=== PATIENT | female | born 1955 | race Caucasian/White ===

== ENCOUNTER 2020-10-19 08:08 | Outpatient (REF) | payer BC, SELFPAY ==
[2020-10-22 01:27] LABS: HPV mRNA E6/E7 rflx Not Detected (Not Detected)
== END 2020-10-19 08:09 | disposition home or self-care (01) ==
LOC: HO.LAB 08:08
PROVIDERS: PCP Internal Medicine; Visit Provider Advanced Practice Midwife
DX: Z01.419 Encounter for gynecological examination (general) (routine) without abnormal findings (principal); Z11.51 Encounter for screening for human papillomavirus (HPV)
CPT/HCPCS: 87624; 88142

== ENCOUNTER 2021-01-11 08:05 | Outpatient (REF) | payer MEDICARE, SELFPAY ==
--- NOTE | ~2021-01-11 | US_ITS ---
EXAMINATION: US DIAGNOSTIC ULTRASOUND BREAST, LEFT CLINICAL INFORMATION: Left breast density upper outer aspect. COMPARISON: June 17, 2019 and studies dating back to April 08, 2009. TECHNIQUE: Ultrasound of the breast is performed with real-time de [place] scale imaging and color Doppler. FINDINGS: Targeted right breast ultrasound again shows a hypoechoic lesion which is well-circumscribed and hypoechoic with the appearance of a complex cyst with some distal sound enhancement and no distal sound shadowing and no internal vasculature. This is at the 9:00 position and measures approximately 4 x 3 x 3 mm in size. This has been stable or smaller for 2 years. At the 1:00 position within the left breast there is a 7 x 6 x 2 mm well-circumscribed hypoechoic lesion with some distal sound enhancement and no distal sound shadowing. The lesion is wider than it is tall and is avascular. Results are provided to the patient at time of visit by the technologist. US/US breast LT limited IMPRESSION: Stability of right breast lesion for 2 years. New circumscribed hypoechoic lesion within the upper outer aspect of the left breast for which 6 month follow-up left breast mammogram and ultrasound is recommended. ASSESSMENT: BI-RADS 3: Probably Benign RECOMMENDATION: Diagnostic mammography in 6 months. Targeted left breast ultrasound.
--- NOTE | ~2021-01-11 | US_ITS ---
EXAMINATION: US DIAGNOSTIC ULTRASOUND BREAST, RIGHT CLINICAL INFORMATION: Follow-up hypoechoic lesion 9 o'clock position. COMPARISON: June 17, 2019 and studies dating back to April 08, 2009. TECHNIQUE: Ultrasound of the breast is performed with real-time de [place] scale imaging and color Doppler. FINDINGS: Targeted right breast ultrasound again shows a hypoechoic lesion which is well-circumscribed and hypoechoic with the appearance of a complex cyst with some distal sound enhancement and no distal sound shadowing and no internal vasculature. This is at the 9:00 position and measures approximately 4 x 3 x 3 mm in size. This has been stable or smaller for 2 years. At the 1:00 position within the left breast there is a 7 x 6 x 2 mm well-circumscribed hypoechoic lesion with some distal sound enhancement and no distal sound shadowing. The lesion is wider than it is tall and is avascular. Results are provided to the patient at time of visit by the technologist. US/US breast RT limited IMPRESSION: Stability of right breast lesion for 2 years. New circumscribed hypoechoic lesion within the upper outer aspect of the left breast for which 6 month follow-up left breast mammogram and ultrasound is recommended. ASSESSMENT: BI-RADS 3: Probably Benign RECOMMENDATION: Diagnostic mammography in 6 months. Targeted left breast ultrasound. .
--- NOTE | ~2021-01-11 | MM_ITS ---
EXAMINATION: MM DIAGNOSTIC DIGITAL BREAST TOMOSYNTHESIS, BILATERAL US TARGETED BREAST, BILATERAL CLINICAL INFORMATION: Right breast one-year follow up for cyst. Left yearly screening. The lifetime risk of breast cancer based on the Tyrer-Cuzick Model is 6.2%. COMPARISON: Mammography: 06/17/2019 and studies going back to 04/08/2009. TECHNIQUE: Digital breast tomosynthesis is performed in both the craniocaudal and mediolateral oblique views along with computer-aided detection (CAD). Synthesized 2-D images are generated from the tomosynthesis. FINDINGS: The breasts are heterogeneously dense, which may obscure small masses (ACR BI-RADS breast composition Category c). RIGHT BREAST: There is a stable parenchymal pattern present. No new abnormal dominant mass or suspicious grouping of microcalcifications identified. LEFT BREAST: Within the left breast, there is noted to be a new 6 mm density about the upper outer aspect of the left breast approximately 6 cm from the nipple. No region of architectural distortion or suspicious grouping of microcalcifications identified. TARGETED ULTRASOUND: Targeted right breast ultrasound again shows a hypoechoic lesion which is well circumscribed and hypoechoic with the appearance of a complex cyst with some distal sound enhancement and no distal sound shadowing and no internal vasculature. This is at the 9 o'clock position and measures approximately 4 x 3 x 3 mm in size. This has been stable or smaller for 2 years. At the 1 o'clock position within the left breast, there is a 7 x 6 x 2 mm well circumscribed hypoechoic lesion with some distal sound enhancement and no distal sound shadowing. The lesion is wider than it is tall and is avascular. Results are provided to the patient at time of visit by the technologist. MM/MM tomosynthesis diagnostic BI IMPRESSION: 1. Stability of right breast lesion for 2 years. 2. New circumscribed hypoechoic lesion within the upper outer aspect of the left breast for which 6 month follow up left breast mammogram and ultrasound is recommended. ASSESSMENT: BI-RADS 3: Probably Benign. RECOMMENDATION: 1. Diagnostic mammography in 6 months. 2. Targeted left breast ultrasound. This patient's information was entered into a reminder system with a target due date for their next mammogram.
== END 2021-01-11 08:06 | disposition home or self-care (01) ==
LOC: HO.MAMMO 08:05
PROVIDERS: PCP Internal Medicine; Visit Provider Internal Medicine
DX: N60.01 Solitary cyst of right breast (principal); N63.21 Unspecified lump in the left breast, upper outer quadrant
CPT/HCPCS: 76642; 77062; 77066

== ENCOUNTER 2021-01-26 07:02 | Outpatient (REF) | payer MEDICARE, SELFPAY ==
[2021-01-26 07:19] LABS: MANUAL DIFF FLAG NO
[2021-01-26 07:36] LABS: Basophils Percent Auto 0.3 % (0-2); Eosinophils Absolute Auto 0.2 X10*3/uL (0.0-0.4); Eosinophils Percent Auto 2.9 % (0-4); Hematocrit 42.9 % (37-47); Hemoglobin 14.1 g/dl (12.0-16.0); Imm Gran Abs Auto 0.01 X10*3/uL (0.00-0.03); Imm Gran Pct Auto 0.2 % (0.0-0.4); Lymphocytes Absolute Auto 1.7 X10*3/uL (1.2-4.9); Lymphocytes Percent Auto 29.4 % (20-40); Mean Corpuscular HGB Conc 32.9 g/dl (31.0-35.0); Mean Corpuscular Hemoglobin 28.5 pg (27.0-33.0); Mean Corpuscular Volume 86.7 fL (80-98); Mean Platelet Volume 10.9 fL (9.4-12.3); Monocytes Absolute Auto 0.4 X10*3/uL (0.1-1.2); Monocytes Percent Auto 7.6 % (2-11); Neutrophils Absolute Auto 3.5 X10*3/uL (2.0-8.3); Neutrophils Percent Auto 59.6 % (45-73); Platelet Count 210 X10*3/uL (160-400); Red Blood Count 4.95 X10*6/uL (4.20-5.50); Red Cell Distribution Width 13.4 % (11.0-16.0); White Blood Count 5.8 X10*3/uL (4.8-10.8)
[2021-01-26 07:54] LABS: Alanine Aminotransferase 24 U/L (0-31); Albumin Level 4.3 g/dL (3.5-5.0); Alkaline Phosphatase 103 U/L (39-117); Anion Gap 9 (12-20); Aspartate Amino Transferase 20 U/L (5-31); Bilirubin Total 0.6 mg/dL (0.0-1.0); Blood Urea Nitrogen 15 mg/dL (9-16); Calcium 10.8 mg/dL (8.4-10.2); Carbon Dioxide 31 mmol/L (22-29); Chloride 107 mmol/L (96-108); Cholesterol 251 mg/dL; Estimated Glomerular Filt Rate > 60; Glucose Random 97 mg/dL (60-115); HDL Cholesterol 75 mg/dL; LDL Cholesterol Calculated 163 mg/dl; Potassium 4.3 mmol/L (3.3-5.1); Sodium 143 mmol/L (135-145); Triglycerides 69 mg/dL
[2021-01-26 08:19] LABS: Free T4 (Free Thyroxine) 0.88 ng/dL (0.71-1.85); Thyroid Stimulating Hormone 2.29 uIU/mL (0.32-4.0); Vitamin D 25-OH Total 21.2 ng/mL (>30)
[2021-01-26 08:26] LABS: Folate 9.4 ng/mL (> or = 4.0); Vitamin B12 266 pg/mL (200-900)
== END 2021-01-26 07:03 | disposition home or self-care (01) ==
LOC: HO.LAB 07:02
PROVIDERS: PCP Internal Medicine; Visit Provider Internal Medicine
DX: M85.80 Other specified disorders of bone density and structure, unspecified site (principal); E78.00 Pure hypercholesterolemia, unspecified
CPT/HCPCS: 36415; 80053; 80061; 82306; 82607; 82746; 84439; 84443; 85025

== ENCOUNTER 2021-03-10 08:03 | Outpatient (REF) | payer MEDICARE, SELFPAY ==
--- NOTE | ~2021-03-10 | MM_ITS ---
EXAMINATION: BONE DENSITOMETRY CLINICAL INDICATION: Osteopenia. COMPARISON: None (current study represents initial baseline exam). TECHNIQUE: Using a [employer] DXA System (software version: 13.1) manufactured by [employer], dual-energy x-ray absorptiometry was performed of the lumbar spine and left hip. The images are of good technical quality. Summary results are attached. FINDINGS: AP SPINE L1-L4: BMD 1.123 g/cm2, Z-score 1.1, T-score -0.5, normal. LEFT FEMUR, NECK: BMD 0.875 g/cm2, Z-score 0.3, T-score -1.2, osteopenia. LEFT FEMUR, TOTAL: BMD 0.928 g/cm2, Z-score 0.6, T-score -0.6, normal. IDENTIFIED RISK FACTORS: Menopause. HISTORY OF FRACTURE: None listed. MEDICATIONS: None listed. MM/XR DEXA axial skeleton IMPRESSION: 1. DIAGNOSIS: Osteopenia based on the lowest T-score value of -1.2 in the femoral neck applying World Health Organization criteria. 2. 10-YEAR FRACTURE RISK PREDICTION, FRAX: Major osteoporotic fracture (clinical spine, forearm, hip or shoulder) 8.1%. Hip fracture 0.7%. 3. Treatment Recommendations: NOF guidelines recommend consideration for treatment in postmenopausal women and men age 50 and older presenting with the following: -A hip or vertebral (clinical or morphometric) fracture. -T-score less than or equal to -2.5 at the femoral neck or spine after appropriate evaluation to exclude secondary causes. -Low bone mass at the hip or spine and a 10-year fracture probability by FRAX of greater than or equal to 3% for hip fracture or greater than or equal to 20% for major osteoporotic fracture based on the [place] adapted WHO algorithm. 4. Other Recommendations: All treatment decisions require clinical judgment and consideration of individual patient factors, including patient preferences, comorbidities, previous drug use, risk factors not captured in the FRAX model (e.g. frailty, falls, vitamin D deficiency, increased bone turnover, interval significant decline in bone density) and possible under or overestimation of fracture risk by FRAX. Additional medical evaluation for secondary cause of low bone mineral density may be appropriate. FUTURE SCAN RECOMMENDATION: People with diagnosed cases of osteoporosis or at high risk for fracture should have regular bone mineral density tests. For patients eligible for Medicare, routine testing is allowed once every 2 years. The testing frequency can be increased to one year for patients who have rapidly progressing disease, those who are receiving or discontinuing medical therapy to restore bone mass, or have additional risk factors.
== END 2021-03-10 08:04 | disposition home or self-care (01) ==
LOC: HO.MAMMO 08:03
PROVIDERS: Visit Provider Internal Medicine
DX: Z13.820 Encounter for screening for osteoporosis (principal); M85.80 Other specified disorders of bone density and structure, unspecified site; Z78.0 Asymptomatic menopausal state
CPT/HCPCS: 77080

== ENCOUNTER 2021-03-29 06:56 | Outpatient (REF) | payer MEDICARE, SELFPAY ==
[2021-03-30 15:56] LABS: Calcium (PTHI) 10.7 mg/dL (8.6-10.4); PTHI 134 pg/mL (14-64)
[2021-03-31 11:16] LABS: Calcium, Ionized 5.6 mg/dL (4.8-5.6)
== END 2021-03-29 06:57 | disposition home or self-care (01) ==
LOC: HO.LAB 06:56
PROVIDERS: PCP Internal Medicine; Visit Provider Internal Medicine
DX: E83.52 Hypercalcemia (principal)
CPT/HCPCS: 36415; 82330; 83970

== ENCOUNTER 2021-07-12 10:49 | Outpatient (REF) | payer MEDICARE, SELFPAY ==
--- NOTE | ~2021-07-12 | MM_ITS ---
EXAMINATION: MM DIAGNOSTIC DIGITAL BREAST TOMOSYNTHESIS, LEFT TARGETED LEFT BREAST ULTRASOUND CLINICAL INFORMATION: Left breast density 1 o'clock position. The lifetime risk of breast cancer based on the Tyrer-Cuzick Model is 7%. COMPARISON: Mammography: 01/11/2021 and studies dating back to 04/08/2009. TECHNIQUE: Digital breast tomosynthesis is performed in both the craniocaudal and mediolateral oblique views along with computer-aided detection (CAD). Synthesized 2D images are generated from the tomosynthesis. Spot compression view left breast in mediolateral oblique projection and full-field 90-degree mediolateral view. Targeted left breast ultrasound. FINDINGS: The breasts are heterogeneously dense, which may obscure small masses (ACR BI-RADS breast composition Category c). There is a central stability to the circumscribed density about the deep upper outer aspect of the left breast. There is question of a partially circumscribed density about the inferior aspect of the breast which by tomosynthesis views shows should be lateral; however, I do not visualize it on craniocaudal view. Spot compression view of this location does not demonstrate persistence of a circumscribed mass. Targeted ultrasound evaluation demonstrates stability of the 1 o'clock lesion measuring 5 x 5 x 2 mm in size which is well circumscribed without distal sound shadowing and is wider than it is tall without internal vascularity, approximately 2 cm from the nipple which may not correspond to the mammographic finding due to it being approximately 2 cm from nipple compared to the mammographic distance from the nipple. However, breast position changes with the patient supine on ultrasound. Essentially whole-breast scanning was then performed looking for the second questioned lesion with no abnormal cystic or solid mass identified and no region of abnormal distal sound shadowing identified. Recommend 6 month bilateral mammography with diagnostic study of the left breast as well as left breast ultrasound. Results are discussed with the patient at time of visit. MM/MM tomosynthesis diagnostic LT IMPRESSION: There are no significant changes from prior study. ASSESSMENT: BI-RADS 3: Probably Benign. RECOMMENDATION: Diagnostic mammography in 6 months. This patient's information was entered into a reminder system with a target due date for their next mammogram.
--- NOTE | ~2021-07-12 | US_ITS ---
EXAMINATION: US DIAGNOSTIC ULTRASOUND BREAST, LEFT CLINICAL INFORMATION: Density 1:00 position. COMPARISON: Ultrasound of January 12, 2020 and studies dating back to March 22, 2017. TECHNIQUE: Ultrasound of the breast is performed with real-time [place] scale imaging and color Doppler. FINDINGS: Targeted ultrasound evaluation demonstrates stability of the 1:00 lesion measuring 5 x 5 x 2 mm in size which is well-circumscribed without distal sound shadowing and is wider than it is tall without internal vascularity approximately 2 cm from the nipple which may not correspond to the mammographic finding due to its approximately 2 cm from nipple compared to the mammographic distance from the nipple. However breast position changes with the patient supine on ultrasound. Essentially all breast scanning was then performed looking for the second questioned lesion with no abnormal cystic or solid mass identified and no region of abnormal distal sound shadowing identified. Recommend 6 month bilateral mammography with diagnostic study of the left breast as well as left breast ultrasound. Results are discussed with the patient at time of visit. US/US breast LT limited IMPRESSION: There are no significant changes from prior study. ASSESSMENT: BI-RADS 3: Probably Benign RECOMMENDATION: Diagnostic mammography in 6 months.
== END 2021-07-12 10:50 | disposition home or self-care (01) ==
LOC: HO.MAMMO 10:49
PROVIDERS: PCP Internal Medicine; Visit Provider Internal Medicine
DX: R92.2 Inconclusive mammogram (principal)
CPT/HCPCS: 76642; 77061; 77065

== ENCOUNTER 2021-12-09 11:11 | Outpatient (REF) | payer MEDICARE, SELFPAY ==
[2021-12-09 11:44] LABS: Hematocrit 43.4 % (37.0-47.0); Hemoglobin 14.1 g/dl (12.0-16.0); Mean Corpuscular HGB Conc 32.5 g/dl (31.0-35.0); Mean Corpuscular Hemoglobin 27.9 pg (27.0-33.0); Mean Corpuscular Volume 85.9 fL (80.0-98.0); Mean Platelet Volume 10.6 fL (9.4-12.3); Platelet Count 213 X10*3/uL (160-400); Red Blood Count 5.05 X10*6/uL (4.20-5.50); Red Cell Distribution Width 13.3 % (11.0-16.0); White Blood Count 4.9 X10*3/uL (4.8-10.8)
[2021-12-09 12:12] LABS: Alanine Aminotransferase 31 U/L (0-31); Albumin Level 4.4 g/dL (3.5-5.0); Alkaline Phosphatase 116 U/L (39-117); Anion Gap 14 (12-20); Aspartate Amino Transferase 22 U/L (5-31); Bilirubin Direct 0.2 mg/dL (0.0-0.5); Bilirubin Total 0.5 mg/dL (0.0-1.0); Blood Urea Nitrogen 18 mg/dL (9-16); Calcium 10.8 mg/dL (8.4-10.2); Carbon Dioxide 29 mmol/L (22-29); Chloride 104 mmol/L (96-108); Estimated Glomerular Filt Rate > 60; Glucose Random 90 mg/dL (60-115); Sodium 142 mmol/L (135-145); Total Protein 7.2 g/dL (6.5-8.0)
[2021-12-09 12:31] LABS: Thyroid Stimulating Hormone 2.25 uIU/mL (0.32-4.0)
== END 2021-12-09 11:12 | disposition home or self-care (01) ==
LOC: HO.LAB 11:11
PROVIDERS: PCP Internal Medicine; Visit Provider Internal Medicine
DX: H26.9 Unspecified cataract (principal)
CPT/HCPCS: 36415; 80048; 80076; 84443; 85027

== ENCOUNTER 2022-01-20 13:11 | Outpatient (REF) | payer MEDICARE, SELFPAY ==
--- NOTE | ~2022-01-20 | MM_ITS ---
EXAMINATION: MM DIAGNOSTIC DIGITAL BREAST TOMOSYNTHESIS, BILATERAL US DIAGNOSTIC ULTRASOUND BREAST, LEFT CLINICAL INFORMATION: Due for yearly. Also follow-up probable benign nodular asymmetric density central upper outer left breast, initially noted on mammography 01/11/2021. TC score 7%. COMPARISON: Mammography: 07/12/2021, 01/11/2021 (diagnostic, BI-RADS 3), 06/17/2019, 06/09/2018; targeted left breast ultrasound 07/12/2021, 01/11/2021. TECHNIQUE: Digital breast tomosynthesis is performed in both the craniocaudal and mediolateral oblique views along with computer-aided detection (CAD). Synthesized 2D images are generated from the tomosynthesis. Ultrasound left breast is targeted to the area of imaging concern upper and outer quadrants. Grayscale imaging and color Doppler are performed without and with harmonics. FINDINGS: The breasts are heterogeneously dense, which may obscure small masses (ACR BI-RADS breast composition Category c). There are scattered parenchymal asymmetries similar to prior studies. No developing density or interval architectural abnormality. No abnormal calcifications. The axilla are unremarkable. The skin contours are smooth. The nodular asymmetric density central upper outer left breast for follow-up is less conspicuous, decreased in size. Targeted ultrasound demonstrates no cystic or solid mass. No architectural abnormality. Results are discussed with the patient at time of visit. Left breast will be reassessed again at next bilateral annual mammography in 12 months to conclude long-term surveillance. MM/MM tomosynthesis diagnostic BI IMPRESSION: Left: -Finding for follow-up is less conspicuous, decreased from prior exam. Right: -No mammographic evidence of malignancy. ASSESSMENT: BI-RADS 3: Probably Benign RECOMMENDATION: Diagnostic mammography at time of next annual exam, due in 12 months. This patient's information was entered into a reminder system with a target due date for their next mammogram.
== END 2022-01-20 13:12 | disposition home or self-care (01) ==
LOC: HO.MAMMO 13:11
PROVIDERS: PCP Internal Medicine; Visit Provider Internal Medicine
DX: N63.21 Unspecified lump in the left breast, upper outer quadrant (principal)
CPT/HCPCS: 76642; 77062; 77066

== ENCOUNTER 2022-06-08 08:07 | Outpatient (REF) | payer MEDICARE, SELFPAY ==
[2022-06-11 03:48] LABS: HPV mRNA E6/E7 rflx Not Detected (Not Detected)
== END 2022-06-08 08:08 | disposition home or self-care (01) ==
LOC: HO.LNP 08:07
PROVIDERS: PCP Internal Medicine; Visit Provider Advanced Practice Midwife
DX: Z01.419 Encounter for gynecological examination (general) (routine) without abnormal findings (principal); Z11.51 Encounter for screening for human papillomavirus (HPV); N81.10 Cystocele, unspecified
CPT/HCPCS: 87624; 88142; 99212

== ENCOUNTER 2023-01-26 12:44 | Outpatient (REF) | payer MEDICARE, SELFPAY | END 2023-01-26 12:45 | disposition home or self-care (01) | LOC: HO.MAMMO 12:44 | PROVIDERS: PCP Internal Medicine; Visit Provider Internal Medicine | DX: R92.2 Inconclusive mammogram (principal) | CPT/HCPCS: 77062; 77066 ==

== ENCOUNTER → 2023-01-26 13:00 | Outpatient (BNV) | payer MEDICARE, SELFPAY | PROVIDERS: PCP Internal Medicine; Visit Provider Radiology Diagnostic Radiology | DX: R92.333 Mammographic heterogeneous density, bilateral breasts (principal); R92.1 Mammographic calcification found on diagnostic imaging of breast | CPT/HCPCS: 77062; 77066 ==

== ENCOUNTER 2023-02-02 08:44 | Outpatient (AMB) | payer MEDICARE, SELFPAY ==
[2023-02-02 08:49] VITALS: BP 124/68; PULSE 63; O2SAT 98; BMI 23.2
--- NOTE | 2023-02-02 08:49 | AM.OFFVISMDC ---
Intake Vital Signs 02/02/23 08:49 Height 5 ft 6 in Weight 144 lb BMI 23.2 BP 124/68 Blood Pressure Location Lt brachial Position Sitting Pulse 63 Pulse Source Pulse Oximeter Pulse Oximetry (%) 98 Oxygen Delivery Method Room Air Intake Visit Reasons: SAWV [id number], Discuss/Bill ACP Allergies penicillin V Allergy (Unknown, Verified 02/02/23 08:50) hives Medication List - Last Reconciled 02/02/23 by Miranda Casillas MD acetaminophen (Tylenol Extra Strength) 500 mg PO Q6H PRN cholecalciferol (vitamin D3) 50 mcg PO DAILY 90 days cyanocobalamin (vitamin B-12) 1,000 mcg PO DAILY lidocaine 5% 1 appl topical DAILY PRN omega-3 fatty acids (Fish Oil Concentrate) 1,000 mg PO DAILY sumatriptan succinate 25 mg PO Q2-4H PRN HPI SAWV [id number], Discuss/Bill ACP HPI Details 68-year-old female with a history of hyperparathyroidism vitamin-D deficiency B12 deficiency hypercholesterolemia osteopenia migraine coming in for annual well visit last seen last year. Patient's Pap smear mammogram and Cologuard are up-to-date patient follows up in [facility] for seborrheic keratosis bone density February 2021 for osteopenia walks 10 miles a day [facility] Medical History (Updated 02/02/23 @ 09:31 by Miranda Casillas MD) Medicare annual wellness visit, subsequent Hypercalcemia Annual physical exam Colon cancer screening Abnormal Pap smear of cervix Surgical History History of cataract surgery Strabismus Family History (Updated 02/02/23 @ 09:36 by Miranda Casillas MD) Brother Polycythemia vera Father FH: prostate cancer Social History Housing: House Alcohol intake: never Patient Tobacco Use Status: Never used Tobacco e-Cigarette/Vaping Use: Never Used Second Hand Smoke Exposure: No service: No Current occupational status: retired Cognitive needs: No Hearing needs: No Vision needs: Yes (glasses) Questionnaire Medicare Wellness Checkup [age] 65-70 What gender do you identify with?: female During the past 4 weeks, how much have you been bothered by emotional problems such as feeling anxious, depressed, irritable, sad or downhearted, and blue?: not at all During the past 4 weeks, has your physical & emotional health limited your social activities with family, friends, neighbors, or groups?: not at all During the past 4 weeks, how much bodily pain have you generally had?: no pain During the past 4 weeks, was someone available to help you if you needed & wanted help?: yes, as much as I wanted During the past 4 weeks, what was the hardest physical activity you could do for at least 2 minutes?: moderate Can you get to places out of walking distance without help? (For eg., can you travel alone on buses, taxis or drive your car?): Yes Can you go shopping for groceries or clothes without someone's help?: Yes Can you prepare your own meals?: Yes Can you do your housework without help?: Yes Because of any health problems, do you need the help of another person with your personal care needs such as eating, bathing, dressing or getting around the house?: No Can you handle your own money without help?: Yes During the past 4 weeks, how would you rate your health in general?: very good During the past 4 weeks how have things been going for you?: very well; could hardly better Are you having difficulties driving your car?: no Do you always fasten your seat belt when you are in a car?: yes, usually During past 4 weeks, have you been bothered by the following: never: Falling or dizzy when standing up, Sexual problems?, Trouble eating well?, Teeth or denture problems?, Problems using the telephone? and Tiredness or fatigue? Have you fallen 2 or more times in the past year?: No Are you afraid of falling?: No Are you a smoker?: no During the past 4 weeks, how many drinks of wine, beer, or other alcoholic beverages did you have?: no alcohol at all Do you exercise for about 20 minutes 3 or more times a week?: yes, most of the time Have you been given information to help with the following?: no: Hazards in your house that might hurt you? and no: Keeping track of your medications? How often do you have trouble taking medicines the way you have been told to take them?: I do not have to take medicine How confident are you that you can control & manage most of your health problems?: very confident What is your race?: White PHQ-9 Over the last 2 weeks, how often have you been bothered by any of the following problems? 1. Little interest or pleasure in doing things: not at all 2. Feeling down, depressed, or hopeless: not at all 3. Trouble falling or staying asleep, or sleeping too much: not at all 4. Feeling tired or having little energy: not at all 5. Poor appetite or overeating: not at all 6. Feeling bad about yourself - or that you are a failure or have let yourself or your family down: not at all 7. Trouble concentrating on things, such as reading the newspaper or watching television: not at all 8. Moving or speaking so slowly that other people could have noticed. Or the opposite - being so fidgety or restless that you have been moving around a lot more than usual: not at all 9. Thoughts that you would be better off or of hurting yourself in some way: not at all Total score: 0 Depression Screening Interpretation: Negative Depression Screening Done: Yes Source: Developed by Drs. Tay Juares, Jeanine Jimenes, Ronny Paige and colleagues, with an educational chaparro from [email or web address]. Thrive Questionnaire Date Thrive assessed: 02/02/23 I am a: Patient What is your living situation today?: I have a steady place to live Within the past 12 months, did the food you bought not last and you didn't have the money to get more?: Never true Within the past 12 months, did you worry whether your food would run out before you got money to buy more?: Never true Do you have trouble paying for medicines?: No Do you have trouble getting transportation to medical appointments?: No Do you have trouble paying your heating and electricity bill?: No Do you have trouble taking care of your child, family member or friend?: No Do you have trouble with day-to-day activities such as bathing, preparing meals, shopping, managing finances, etc.?: No Are you currently unemployed and looking for a job?: No Are you interested in more education?: No Currently or been in a relationship where the following occur: no concerns reported JOSE-7 AMB Questionnaire JOSE-7 Date JOSE - 7 assessed: 02/02/23 Feeling nervous, anxious, or on edge: 0 = Not at all Not being able to stop or control worryin = Not at all Worrying too much about different things: 0 = Not at all Trouble relaxin = Not at all Being so restless that it is hard to sit still: 0 = Not at all Becoming easily annoyed or irritable: 0 = Not at all Feeling afraid as if something awful might happen: 0 = Not at all Total JOSE-7 score (0-4 normal; 5-9 mild; 10-14 moderate; 15-21 severe): 0 Source: Developed by Drs. Tay Juares, Jeanine Jimenes, Ronny Paige and colleagues, with an educational chaparro from [email or web address]. Review of Systems Const Denies poor appetite and Denies weakness Eyes Denies no additional complaints ENT Reports Normal hearing present, Denies dizziness, Denies nasal congestion, Denies tinnitus and Denies sore throat Card Denies chest pain, Denies syncope, Denies rapid heart rate and Denies dyspnea Resp Denies cough and Denies dyspnea GI Denies change in stool character, Reports constipation, Denies diarrhea, Denies nausea and Denies vomiting Denies urinary frequency, Denies difficulty voiding and Denies dysuria Neuro Reports Normal hearing present, Denies confusion, Denies dizziness, Denies syncope and Denies weakness Psych Denies confusion Physical Exam Vital Signs: Last Vital Signs Pulse 63 02/02/23 08:49 BP 124/68 02/02/23 08:49 Pulse Ox 98 02/02/23 08:49 Oxygen Delivery Method Room Air 02/02/23 08:49 BMI result Body Mass Index 23.2 Const General: alert and awake; No confusion Orientation/consciousness: No confusion HEENT Head: Yes normocephalic Ears: external ears normal and TM's normal bilaterally Face and sinus: Yes normal facial exam Mouth: moist mucous membranes Throat: Yes tonsils normal Eyes Conjunctivae: conjunctivae normal Pupils: Equal, round and reactive pupils present and Pupil accommodation reflex normal Direct Ophthalmoscopy: normal light reflex Neck Neck: No lymphadenopathy Thyroid: Thyroid normal Chest Chest palpation & inspection: normal inspection of the chest Resp Effort & Inspection: normal respiratory effort and no audible wheezes Auscultation: clear to auscultation bilaterally, no crackles, no wheezes and lung sounds not diminished Cardio Rate: regular rate Rhythm: regular rhythm Peripheral pulses: radial pulses present and dorsalis pedis present GI Palpation (GI): no masses Auscultation: normal bowel sounds and normoactive bowel sounds Rectal Exam - Female: deferred Skin General skin exam: no rashes or lesions noted Rashes: no rashes Neuro General: deep tendon reflexes 2+ bilaterally and No confusion Cranial nerves: Yes Equal, round and reactive pupils present, Yes Midline tongue present, Yes Normal hearing present and Yes Ability to bilaterally elevate shoulders present Cognition (Neuro): normal cognition Gait exam (Neuro): Normal gait present Motor exam (neuro): 5/5 motor strength present throughout Deep tendon reflexes (DTR's): Right brachioradialis reflex intensity grade: 2+, Left brachioradialis reflex intensity grade: 2+, Right patellar reflex intensity grade: 2+ and Left patellar reflex intensity grade: 2+ Extrem General: No edema Assessment & Plan Assessment & Plan (1) Medicare annual wellness visit, subsequent: Code(s): Z00.00 - Encounter for general adult medical examination without abnormal findings (2) Hyperparathyroidism: Code(s): E21.3 - Hyperparathyroidism, unspecified Plan: Patient has seen Endocrinology and continuing to monitor. Bone density is due in February (3) Osteopenia: Comment: February 2021 Code(s): M85.80 - Other specified disorders of bone density and structure, unspecified site Plan: Bone density due in February 2023 Orders: Orders PTHI Today E21.3 - Hyperparathyroidism, unspecified Complete Blood Count Auto Diff Today E21.3 - Hyperparathyroidism, unspecified Free T4 (Free Thyroxine) Today E21.3 - Hyperparathyroidism, unspecified Vitamin D 25-OH Total Today E21.3 - Hyperparathyroidism, unspecified Comprehensive Met. Panel Today E21.3 - Hyperparathyroidism, unspecified Lipid Panel Today E21.3 - Hyperparathyroidism, unspecified, E78.00 - Pure hypercholesterolemia, unspecified Thyroid Stimulating Hormone Today E21.3 - Hyperparathyroidism, unspecified Vitamin B12 and Folate Today E21.3 - Hyperparathyroidism, unspecified XR DEXA axial skeleton Today E21.3 - Hyperparathyroidism, unspecified, M81.0 - Age-related osteoporosis without current pathological fracture Quality Reporting (2019) Depression/Bipolar (159/160/161/177) PHQ-9: Total score: 0 Coding Level of Care Code Medicare Subsequent (G0439) Diagnoses Medicare annual wellness visit, subsequent Z00.00 Hyperparathyroidism E21.3 Osteopenia M85.80
== END 2023-02-02 09:48 | disposition home or self-care (01) ==
PROVIDERS: Visit Provider Internal Medicine
DX: Z00.00 Encounter for general adult medical examination without abnormal findings (principal); E21.3 Hyperparathyroidism, unspecified; M85.80 Other specified disorders of bone density and structure, unspecified site
CPT/HCPCS: G0439

== ENCOUNTER 2023-02-02 09:55 | Outpatient (REF) | payer MEDICARE, SELFPAY ==
[2023-02-02 10:07] LABS: MANUAL DIFF FLAG NO
[2023-02-02 10:53] LABS: Basophils Percent Auto 0.8 % (0-2); Eosinophils Absolute Auto 0.1 X10*3/uL (0.0-0.4); Eosinophils Percent Auto 2.2 % (0-4); Hematocrit 44.3 % (37.0-47.0); Hemoglobin 14.3 g/dl (12.0-16.0); Imm Gran Abs Auto 0.01 X10*3/uL (0.00-0.03); Imm Gran Pct Auto 0.2 % (0.0-0.4); Lymphocytes Absolute Auto 1.7 X10*3/uL (1.2-4.9); Lymphocytes Percent Auto 32.5 % (20-40); Mean Corpuscular HGB Conc 32.3 g/dl (31.0-35.0); Mean Corpuscular Volume 86.9 fL (80.0-98.0); Monocytes Absolute Auto 0.3 X10*3/uL (0.1-1.2); Monocytes Percent Auto 6.5 % (2-11); Neutrophils Absolute Auto 2.9 x10*3/uL (2.0-8.3); Neutrophils Percent Auto 57.8 % (45-73); Platelet Count 246 X10*3/uL (160-400); Red Cell Distribution Width 13.3 % (11.0-16.0); White Blood Count 5.1 X10*3/uL (4.8-10.8)
[2023-02-02 11:44] LABS: Alanine Aminotransferase 20 U/L (0-31); Albumin Level 4.4 g/dL (3.5-5.0); Alkaline Phosphatase 97 U/L (39-117); Anion Gap 12 (12-20); Aspartate Amino Transferase 20 U/L (5-31); Bilirubin Total 0.7 mg/dL (0.0-1.0); Blood Urea Nitrogen 15 mg/dL (9-16); Calcium 11.1 mg/dL (8.4-10.2); Carbon Dioxide 28 mmol/L (22-29); Chloride 106 mmol/L (96-108); Cholesterol 266 mg/dL (<200); Estimated Glomerular Filt Rate > 60; Glucose Random 91 mg/dL (60-115); HDL Cholesterol 81 mg/dL (>40); LDL Cholesterol Calculated 167 mg/dL (<100); Potassium 4.1 mmol/L (3.3-5.1); Sodium 142 mmol/L (135-145); Total Protein 7.3 g/dL (6.5-8.0); Triglycerides 92 mg/dL (<150)
[2023-02-02 12:01] LABS: Vitamin B12 1346 pg/mL (200-900)
[2023-02-02 12:03] LABS: Free T4 (Free Thyroxine) 0.88 ng/dL (0.71-1.85); Thyroid Stimulating Hormone 2.62 uIU/mL (0.32-4.0); Vitamin D 25-OH Total 45.8 ng/mL (>30)
[2023-02-07 15:48] LABS: Calcium (PTHI) 10.9 mg/dL (8.6-10.4); PTHI 157 pg/mL (16-77)
== END 2023-02-02 09:56 | disposition home or self-care (01) ==
LOC: HO.LAB 09:55
PROVIDERS: PCP Internal Medicine; Visit Provider Internal Medicine
DX: E21.3 Hyperparathyroidism, unspecified (principal); E78.00 Pure hypercholesterolemia, unspecified; M85.80 Other specified disorders of bone density and structure, unspecified site; E55.9 Vitamin D deficiency, unspecified
CPT/HCPCS: 36415; 80053; 80061; 82306; 82607; 82746; 83970; 84439; 84443; 85025

== ENCOUNTER 2023-03-29 08:47 | Outpatient (REF) | payer MEDICARE, SELFPAY ==
--- NOTE | ~2023-03-29 | MM_ITS ---
EXAMINATION: BONE DENSITOMETRY CLINICAL INDICATION: Osteoporosis. Hyperparathyroidism. COMPARISON: Baseline BD dated 03/10/2021. TECHNIQUE: Using a [employer] DXA System (software version: 13.1) manufactured by [employer], dual-energy x-ray absorptiometry was performed of the lumbar spine, left hip, and left forearm radius 33%. The images are of good technical quality. Summary results are attached. FINDINGS: LEFT FEMUR, NECK: Current: BMD 0.955 g/cm2, Z-score 1.0, T-score -0.6, normal. Baseline: BMD 0.875 g/cm2. LEFT FEMUR, TOTAL: Current: BMD 0.897 g/cm2, Z-score 0.5, T-score -0.9, normal, 3.3% decrease from baseline (<5% change is not significant). Baseline: BMD 0.928 g/cm2. AP SPINE L1-L4: Current: BMD 1.094 g/cm2, Z-score 1.0, T-score -0.7, normal, 2.6% decrease from baseline (<5% change is not significant). Baseline: BMD 1.123 g/cm2. LEFT FOREARM RADIUS 33%: BMD 0.463 g/cm2, Z-score -3.2, T-score -4.7, osteoporosis. IDENTIFIED RISK FACTORS: Menopause, hyperparathyroid, secondary osteoporosis. HISTORY OF FRACTURE: None listed. MEDICATIONS: Vitamin D. MM/XR DEXA appendicular skeleton IMPRESSION: 1. DIAGNOSIS: Osteoporosis based on the lowest T-score value of -4.7 in the forearm radius 33% applying World Health Organization criteria. 2. 10-YEAR FRACTURE RISK PREDICTION, FRAX: According to the guidelines, FRAX calculation should only be performed on patients in the osteopenia bone density category. Therefore, FRAX was not performed on this patient. 3. Treatment Recommendations: NOF guidelines recommend consideration for treatment in postmenopausal women and men age 50 and older presenting with the following: -A hip or vertebral (clinical or morphometric) fracture. -T-score less than or equal to -2.5 at the femoral neck or spine after appropriate evaluation to exclude secondary causes. -Low bone mass at the hip or spine and a 10-year fracture probability by FRAX of greater than or equal to 3% for hip fracture or greater than or equal to 20% for major osteoporotic fracture based on the [place] adapted WHO algorithm. 4. Other Recommendations: All treatment decisions require clinical judgment and consideration of individual patient factors, including patient preferences, comorbidities, previous drug use, risk factors not captured in the FRAX model (e.g. frailty, falls, vitamin D deficiency, increased bone turnover, interval significant decline in bone density) and possible under or overestimation of fracture risk by FRAX. Additional medical evaluation for secondary cause of low bone mineral density may be appropriate. FUTURE SCAN RECOMMENDATION: People with diagnosed cases of osteoporosis or at high risk for fracture should have regular bone mineral density tests. For patients eligible for Medicare, routine testing is allowed once every 2 years. The testing frequency can be increased to one year for patients who have rapidly progressing disease, those who are receiving or discontinuing medical therapy to restore bone mass, or have additional risk factors.
== END 2023-03-29 08:48 | disposition home or self-care (01) ==
LOC: HO.MAMMO 08:47
PROVIDERS: PCP Internal Medicine; Visit Provider Internal Medicine
DX: Z13.820 Encounter for screening for osteoporosis (principal); E21.3 Hyperparathyroidism, unspecified; E53.8 Deficiency of other specified B group vitamins
CPT/HCPCS: 36415; 77081; 80053; 82607; 82746

== ENCOUNTER 2023-03-29 09:23 | Outpatient (REF) | payer MEDICARE, SELFPAY ==
[2023-03-29 11:19] LABS: Alanine Aminotransferase 28 U/L (0-31); Albumin Level 4.3 g/dL (3.5-5.0); Alkaline Phosphatase 98 U/L (39-117); Anion Gap 12 (12-20); Aspartate Amino Transferase 21 U/L (5-31); Bilirubin Total 0.6 mg/dL (0.0-1.0); Blood Urea Nitrogen 18 mg/dL (9-16); Carbon Dioxide 28 mmol/L (22-29); Chloride 105 mmol/L (96-108); Estimated Glomerular Filt Rate > 60; Glucose Random 89 mg/dL (60-115); Potassium 3.9 mmol/L (3.3-5.1); Sodium 141 mmol/L (135-145); Total Protein 7.2 g/dL (6.5-8.0)
[2023-03-29 11:46] LABS: Folate 9.4 ng/mL (> or = 4.0); Vitamin B12 874 pg/mL (200-900)
== END 2023-03-29 09:24 | disposition home or self-care (01) ==
LOC: HO.LAB 09:23
PROVIDERS: PCP Internal Medicine; Visit Provider Internal Medicine
DX: Z13.89 Encounter for screening for other disorder (principal)
CPT/HCPCS: 36415; 80053; 82607; 82746

== ENCOUNTER 2023-12-16 13:02 | Observation (INO) | payer MEDICARE, SELFPAY ==
[2023-12-16] VITALS (8 sets, daily range): BP systolic 114–153; BP diastolic 60–82; PULSE 54–74; RESP 11–19; TEMP 36.4–36.7; O2SAT 94–99; BMI 25.0
--- NOTE | ~2023-12-16 | CT_ITS ---
EXAMINATION: CT HEAD WITHOUT CONTRAST CLINICAL INFORMATION: Headache. Dizziness. COMPARISON: None available. TECHNIQUE: Contiguous axial imaging was performed from the skull base to vertex without intravenous administration of contrast. This CT examination was performed using dose optimization techniques as appropriate, variously including the following: *Automated exposure control. *Adjustment of mA and/or kV according to patient size (this includes techniques or standardized protocols for targeted exams where dose is matched to indication/reason for exam; i.e. extremities or head). *Use of iterative reconstruction technique. DLP: 586 mGy-cm FINDINGS: There is no evidence of acute intracranial hemorrhage or edematous territorial infarction. [place]-white matter differentiation is preserved. There is no abnormal attenuation within the brain parenchyma. The ventricles are normal in morphology and size. No evidence for obstructive hydrocephalus. No abnormal mass effect or midline shift. No extra-axial fluid collections. Calcific atherosclerotic disease of the intracranial internal carotid arteries. No hyperdense vessel sign. No acute soft tissue or osseous abnormalities. Partially visualized expansile lesion surrounding the right mandibular condyle with relatively smooth remodeling of the temporal articular groove and mandibular condyle, measuring approximately 2.5 x 2.8 x 1.6 cm. There is irregular moderately hyperattenuating material along the periphery of this lesion with relative hypoattenuation centrally. There is also moderate to advanced degenerative arthropathy of the left temporomandibular joint. The mastoid air cells and visualized paranasal sinuses are clear. Bilateral lens extractions. CT/CT head/brain wo IV con IMPRESSION: 1. No evidence of acute intracranial hemorrhage or edematous territorial infarction. 2. Mild underlying microangiopathy and generalized cerebral volume loss. 3. Nonspecific expansile lesion surrounding the right mandibular condyle with relatively smooth remodeling of the regional osseous structures. While this appearance is nonspecific it may represent a hyperplastic synovial process, such as pigmented villonodular synovitis (PVNS), synovial osteochondromatosis, or crystalline/amyloid arthropathies. 4. 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 Electronically signed by: Sridhar Hardin DO 12/16/2023 03:14 PM EDT
--- NOTE | ~2023-12-16 | CT_ITS ---
EXAMINATION: CT ANGIOGRAM HEAD CT ANGIOGRAM NECK CLINICAL INFORMATION: Severe dizziness. Unwell feeling. COMPARISON: CT head from 12/16/2023. TECHNIQUE: Initial noncontrast forging engineer imaging of the head and neck was performed. Comparison is made with noncontrast head CT from earlier today. Test bolus sequences followed by intravenous administration 70 mL of Omnipaque 350. Helical imaging was performed in the axial plane from the aortic arch to the skull vertex. Delayed postcontrast imaging of the head was also performed. The data was processed at the marketing technologist's workstation for generation of MIP sequences. Angled MIPs and volume rendered reformatted images were also generated at an offline 3D workstation. Stenoses are assessed in accordance with NASCET criteria unless otherwise indicated. This CT examination was performed using dose optimization techniques as appropriate, variously including the following: *Automated exposure control. *Adjustment of mA and/or kV according to patient size (this includes techniques or standardized protocols for targeted exams where dose is matched to indication/reason for exam; i.e. extremities or head). *Use of iterative reconstruction technique. DLP: 1359 mGy-cm FINDINGS: CT Head: There is no evidence of acute intracranial hemorrhage or edematous territorial infarction. Ware-white matter differentiation is preserved. There is no abnormal attenuation within the brain parenchyma. The ventricles are normal in morphology and size. No evidence for obstructive hydrocephalus. No abnormal mass effect or midline shift. No extra-axial fluid collections. No pathologic intra-axial enhancement or regional oligemia. No acute soft tissue or osseous abnormalities. Partially visualized expansile lesion surrounding the right mandibular condyle with relatively smooth remodeling of the temporal articular groove and mandibular condyle, measuring approximately 2.5 x 2.8 x 1.6 cm. There is irregular moderately hyperattenuating material along the periphery of this lesion with relative hypoattenuation centrally. There is also moderate to advanced degenerative arthropathy of the left temporomandibular joint. The mastoid air cells and visualized paranasal sinuses are clear. Bilateral lens extractions. CT Neck: There is a 0.6 cm hypoattenuating nodule in the right thyroid lobe (no follow-up imaging recommended based on current guidelines at the time of examination). The remaining cervical soft tissues are within normal limits. Straightening of the normal cervical lordosis. Mild degenerative anterolisthesis of C3 on C4. Advanced degenerative disc disease from C5-C7 and at T1-T2. Moderate degenerative disc disease at all additional levels. CT Upper Chest: The visualized lung apices and upper mediastinum are within normal limits. Neck CTA: Aortic Arch: Normal contour and caliber. Classic 3 vessel branching pattern of the aortic arch. Great Vessel Origins: No significant stenosis of the branch origins. Right Common Carotid Artery: No focal stenosis or occlusion. Cervical Right Internal Carotid Artery: Normal opacification without focal stenosis or occlusion. Left Common Carotid Artery: No focal stenosis or occlusion. Cervical Left Internal Carotid Artery: Normal opacification without focal stenosis or occlusion. Cervical Right Vertebral Artery: Co-dominant. No focal stenosis or occlusion. Cervical Left Vertebral Artery: Co-dominant. No focal stenosis or occlusion. Brain CTA: Intracranial Internal Carotid Arteries: Mild calcific atherosclerotic disease of the intracranial internal carotid arteries without occlusion or flow-limiting stenosis. Right Anterior Cerebral Artery: Normal A1 segment. Normal opacification of the distal AGNES segments. Left Anterior Cerebral Artery: Normal A1 segment. Normal opacification of the distal AGNES segments. Anterior Communicating Artery: Normal. Right Middle Cerebral Artery: Normal M1 segment of the MCA without focal stenosis or occlusion. Normal arborization of the distal segments. Left Middle Cerebral Artery: Normal M1 segment of the MCA without focal stenosis or occlusion. Normal arborization of the distal segments. Right Vertebral Artery: Normal V4 segment. Normal opacification of the proximal segments of the posterior inferior cerebellar artery. Left Vertebral Artery: Normal V4 segment. Normal opacification of the proximal segments of the posterior inferior cerebellar artery. Basilar Artery: Normal without focal stenosis or occlusion. Normal appearance of the proximal superior cerebellar arteries. Right Posterior Cerebral Artery: Normal P1 segment. Normal opacification of the distal SENIOR FRONT END ENGINEER segments. Left Posterior Cerebral Artery: Normal P1 segment. Normal opacification of the distal SENIOR FRONT END ENGINEER segments. Normal opacification of the superior sagittal, straight, transverse, and sigmoid sinuses. CT/CT angio head neck IMPRESSION: 1. No evidence of acute intracranial hemorrhage or edematous territorial infarction. 2. CTA of the head and neck without proximal occlusion or flow-limiting stenosis. 3. Nonspecific expansile lesion surrounding the right mandibular condyle with relatively smooth remodeling of the regional osseous structures. While this appearance is nonspecific it may represent a hyperplastic synovial process, such as pigmented villonodular synovitis (PVNS), synovial osteochondromatosis, or crystalline/amyloid arthropathies. 4. Moderate multilevel degenerative spondyloarthropathy of the cervical spine. Electronically signed by: Sridhar Hardin DO 12/16/2023 04:58 PM EDT RP
--- NOTE | 2023-12-16 13:12 | ECG_ITS ---
Test Reason : DIZZINESS Blood Pressure : / mmHG Vent. Rate : 059 BPM Atrial Rate : 059 BPM P-R Int : 170 ms QRS Dur : 100 ms QT Int : 410 ms P-R-T Axes : 064 037 056 degrees QTc Int : 405 ms Sinus bradycardia Otherwise normal ECG No previous ECGs available Referred By: Hollis Licea Electronically Signed By:BROOKE DALE
--- NOTE | 2023-12-16 13:13 | ED_ITS ---
HPI - General Adult General Chief complaint: Dizziness Stated complaint: DIZZY,UNSTEADY,,NAUSEA PER EMS Time Seen by Provider: 12/16/23 13:10 Source: patient Mode of arrival: ambulatory Limitations: no limitations History of Present Illness ED Provider: Charles murrell HPI narrative: This is a 68-year-old female history of migraines, B12 deficiency, osteopenia, hyperparathyroidism, hyperlipidemia, neuroma presenting to the emergency department with dizziness, nausea, vomiting, weakness all of which started yesterday and have been an intermittent in nature ever since. Reports just prior to arrival she started feeling dizzy about 25 minutes before coming in, describes it as room spinning. She reports she is very anxious about this. She has never had this before. Denies will changes, head trauma, nausea, vomiting, abdominal pain, headache, vision changes, dizziness, weakness, chest pain, shortness of Related Data Home Medications ?Medication ?Instructions ?Recorded ?Confirmed omega-3 fatty acids 1,000 mg 1,000 mg PO DAILY 10/19/20 02/02/23 capsule (Fish Oil Concentrate) acetaminophen 500 mg tablet 500 mg PO Q6H PRN 01/28/22 02/02/23 (Tylenol Extra Strength) Previous Rx's ?Medication ?Instructions ?Recorded cholecalciferol (vitamin D3) 50 50 mcg PO DAILY 90 days #90 caps 03/25/21 mcg (2,000 unit) capsule lidocaine 5 % topical ointment 1 appl topical DAILY PRN pain 01/28/22 #35.44 grams sumatriptan succinate 25 mg tablet 25 mg PO Q2-4H PRN migraine 01/28/22 headache #10 tabs cyanocobalamin (vitamin B-12) 1,000 mcg PO .once a week #12 caps 02/06/23 1,000 mcg capsule meclizine 25 mg tablet 25 mg PO DAILY PRN dizziness #14 12/16/23 tabs Allergies Allergy/AdvReac Type Severity Reaction Status Date / Time penicillin V Allergy Unknown hives Verified 12/16/23 13:20 Review of Systems 2 Review of Systems: Yes all other systems are reviewed and are negative PMFSH Past Medical History Attestation statement: The following information was validated with the patient. Source: old records reviewed and nursing notes reviewed Medical History Medicare annual wellness visit, subsequent Hypercalcemia Annual physical exam Colon cancer screening Abnormal Pap smear of cervix Surgical History History of cataract surgery Strabismus Family History Family History Brother Polycythemia vera Father FH: prostate cancer Social History Social History Housing: House Alcohol intake: never Patient Tobacco Use Status: Never used Tobacco Smoked in Last 30 Days: No e-Cigarette/Vaping Use: Never Used Second Hand Smoke Exposure: No Use of substances other than those prescribed or required for medical reasons: No Advance Directives: Yes Advance Directives on File: Yes Advance Directives Date on File: 12/01/22 Do you have a plan to hurt others: No Plan service: No Current occupational status: retired Cognitive needs: No Hearing needs: No Vision needs: Yes (glasses) Physical Exam ED Vital Signs: Vital Signs - 24 hr 12/16/23 13:15 12/16/23 14:00 12/16/23 14:18 Temperature 97.6 F 97.6 F Pulse Rate 64 54 61 Respiratory Rate 16 11 L Blood Pressure 139/67 138/69 138/69 Pulse Oximetry 99 94 Oxygen Delivery Method Room Air Room Air 12/16/23 14:18 12/16/23 15:01 Temperature Pulse Rate 60 58 Respiratory Rate 13 Blood Pressure 140/77 H 153/73 H Pulse Oximetry 99 Oxygen Delivery Method Room Air BMI result Body Mass Index 25.0 vss Appearance: Alert.? Oriented X3.? No acute distress.? Head: Normocephalic, atraumatic, no step-offs or deformities Eyes: Pupils equal, round and reactive to light.? CVS: Normal heart rate and rhythm.? Pulses normal.? Respiratory: No respiratory distress.? Breath sounds normal.? Abdomen: Soft and nontender.? Skin: Skin warm and dry.? Normal skin color.? Normal skin turgor.? Extremities: No lower extremity edema.? No calf ttp. 5/5 strength to bilateral upper and lower extremities Neuro: Oriented X 3.? No motor deficit.? No sensory deficit. CN 2-12 intact . Normal finger to nose, heel to patel. Course Reevaluation(s) Reevaluation #1: CBC unremarkable. Chemistry with no acute findings needing intervention, she does have a elevated calcium however does have a history of hyperparathyroidism. Troponin negative, EKG nonischemic. Time: 14:00 Reevaluation #2: Patient attempted to complete orthostatic vital signs when she went to stand up she became very symptomatic, started vomiting and become very lightheaded Time: 14:35 Reevaluation #3: CTa ordered and pending as well as revaluation. Sign out to Lisa ERVIN Medications Administered Discontinued Medications Generic Name Dose Route Start Last Admin Trade Name Freq PRN Reason Stop Dose Admin Diazepam 2 mg 12/16/23 13:22 12/16/23 14:23 Diazepam 2 Mg Tablet PO 12/16/23 13:23 2 mg ONCE ONE Administration Sodium Chloride 1,000 mls @ 999 mls/hr 12/16/23 14:45 12/16/23 15:45 Ns IV 12/16/23 15:45 Infused .Q1H1M MIKEY Infusion Sodium Chloride 1,000 mls @ 999 mls/hr 12/16/23 14:45 12/16/23 15:45 Ns IV 12/16/23 15:45 Infused .Q1H1M MIKEY Infusion Meclizine HCl 25 mg 12/16/23 13:22 12/16/23 14:24 Meclizine Hcl 25 Mg Tablet PO 12/16/23 13:23 25 mg ONCE ONE Administration Ondansetron HCl 4 mg 12/16/23 15:25 12/16/23 15:45 Ondansetron Hcl 4 Mg/2 Ml Vial IVPUSH 12/16/23 15:26 4 mg ONCE ONE Administration Medical Decision Making Medical Decision Making [facility] Narrative: 1315 68 yo f presents w/ nausea, dizziness, weakness X 2 days LKWT yesterday PE benign NIHSS-0 Hx and pe concerning for BPPV vs vertigo . Unlikely ich, stroke, posterior stroke. Will rule out orthostatic hypotension and metabolic derrangments Plan- labs, imaging, ekg Differential Diagnosis Differential Diagnoses: The differential diagnosis associated with the presentation includes Hx and pe concerning for BPPV vs vertigo . Unlikely ich, stroke, posterior stroke. Will rule out orthostatic hypotension and metabolic derrangments Admission/Observation Consideration of admission/observation: Escalation of care including admission/observation considered Lab Data MDM Lab Attestation statement: I reviewed the patient's lab results. 12/16/23 13:38 12/16/23 13:38 Labs: Lab Results 12/16/23 Range/Units 13:38 WBC 5.5 (4.8-10.8) X10*3/uL RBC 4.86 (4.20-5.50) X10*6/uL Hgb 14.1 (12.0-16.0) g/dl Hct 41.5 (37.0-47.0) % MCV 85.4 (80.0-98.0) fL MCH 29.0 (27.0-33.0) pg MCHC 34.0 (31.0-35.0) g/dl RDW 13.2 (11.0-16.0) % Plt Count 196 (160-400) X10*3/uL MPV 10.7 (9.4-12.3) fL Immature Gran % (Auto) 0.4 (0.0-0.4) % Neut % (Auto) 58.1 (45-73) % Lymph % (Auto) 31.9 (20-40) % [place] % (Auto) 7.6 (2-11) % Eos % (Auto) 1.3 (0-4) % Baso % (Auto) 0.7 (0-2) % Lymph # (Auto) 1.8 (1.2-4.9) X10*3/uL [place] # (Auto) 0.4 (0.1-1.2) X10*3/uL Eos # (Auto) 0.1 (0.0-0.4) X10*3/uL Baso # (Auto) 0.0 (0.0-0.2) X10*3/uL Abs Immat Gran (auto) 0.02 (0.00-0.03) X10*3/uL Absolute Neuts (auto) 3.2 (2.0-8.3) x10*3/uL Absolute Nucleated RBC 0.000 (0.0-0.012) X10*3/uL Nucleated RBC % (auto) 0.0 (0.0-0.2) /100WBC Sodium 141 (135-145) mmol/L Potassium 3.7 (3.3-5.1) mmol/L Chloride 108 (96-108) mmol/L Carbon Dioxide 21 L (22-29) mmol/L Anion Gap 16 (12-20) BUN 16 (9-16) mg/dL Creatinine 0.78 (0.5-1.4) mg/dL Estim Creat Clear Calc 62.9 Estimated GFR > 60 Random Glucose 109 (60-115) mg/dL Calcium 11.0 H D (8.4-10.2) mg/dL Magnesium 1.9 (1.6-2.6) mg/dL Total Bilirubin 0.7 (0.0-1.0) mg/dL AST 24 (5-31) U/L ALT 31 (0-31) U/L Alkaline Phosphatase 109 (39-117) U/L Troponin I High Sens < 2.7 (<3.5-17.0) ng/L Total Protein 6.8 (6.5-8.0) g/dL Albumin 4.1 (3.5-5.0) g/dL Independent Interpretation I performed an independent interpretation of an: EKG (Vent. Rate : 059 BPM Atrial Rate : 059 BPM P-R Int : 170 ms QRS Dur : 100 ms QT Int : 410 ms P-R-T Axes : 064 037 056 degrees QTc Int : 405 ms Sinus bradycardia Otherwise normal ECG No previous ECGs available) and CT Scan (CT/CT head/brain wo IV con IMPRESSION: 1. No evidence of acute intracranial hemorrhage or edematous territorial infarction. 2. Mild underlying microangiopathy and generalized cerebral volume loss. 3. Nonspecific expansile lesion surrounding the right mandibular condyle with relatively smooth r) Radiology Impression Discussion of test interpretation with radiology: I have reviewed the radiologist's reading. External Record Review External record reviewed: Office record, Outpatient record and Prior outpatient labs Chronic Conditions Patient?s care impacted by: Other (HLD, migrane, neuroma ) Critical Care Time Critical Care Time Critical Care Time: No Discharge Plan Discharge Clinical Impression: Vertigo Patient Disposition: Home, Self-Care Instructions: Vertigo (DC), Dizziness (ED) Additional Instructions: Take your medications as prescribed. If you were prescribed antibiotics today, it is important that you take your medication to their entirety, do not skip any doses, do not finish them early. Follow-up with your primary care provider this week. Return to the emergency department with new or worsening symptoms. Such as fevers, chills, chest pain, shortness of breath, nausea, vomiting, dizziness, headache, vision changes, lethargy In case of emergency call 911 CT/CT head/brain wo IV con IMPRESSION: 1. No evidence of acute intracranial hemorrhage or edematous territorial infarction. 2. Mild underlying microangiopathy and generalized cerebral volume loss. 3. Nonspecific expansile lesion surrounding the right mandibular condyle with relatively smooth remodeling of the regional osseous structures. While this appearance is nonspecific it may represent a hyperplastic synovial process, such as pigmented villonodular synovitis (PVNS), synovial osteochondromatosis, or crystalline/amyloid arthropathies. 4. 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 Prescriptions: New meclizine 25 mg tablet 25 mg PO DAILY PRN (Reason: dizziness) Qty: 14 0RF No Action cholecalciferol (vitamin D3) 50 mcg (2,000 unit) capsule 50 mcg PO DAILY 90 Days Qty: 90 3RF cyanocobalamin (vitamin B-12) 1,000 mcg capsule 1,000 mcg PO .once a week Qty: 12 3RF acetaminophen [Tylenol Extra Strength] 500 mg tablet 500 mg PO Q6H PRN sumatriptan succinate 25 mg tablet 25 mg PO Q2-4H PRN (Reason: migraine headache) Qty: 10 2RF Rx Instructions: do not exceed 8 doses per 24 hrs lidocaine 5 % ointment 1 appl topical DAILY PRN (Reason: pain) Qty: 35.44 0RF omega-3 fatty acids [Fish Oil Concentrate] 1,000 mg capsule 1,000 mg PO DAILY Referrals: Po,Miranda Méndez MD [Primary Care Provider] - 2 days Print Language: Tongan
--- NOTE | 2023-12-16 13:28 | PC.NURSE ---
ambulatory w/o incident to BR and Xray. states she's had episodes of near syncope over the course of many yeears. skin pwd. no neuro deficits noted. aware of plan for imaging and IV fluids.
[2023-12-16 13:41] LABS: MANUAL DIFF FLAG NO
[2023-12-16 13:42] LABS: Basophils Percent Auto 0.7 % (0-2); Eosinophils Absolute Auto 0.1 X10*3/uL (0.0-0.4); Eosinophils Percent Auto 1.3 % (0-4); Hematocrit 41.5 % (37.0-47.0); Hemoglobin 14.1 g/dl (12.0-16.0); Imm Gran Abs Auto 0.02 X10*3/uL (0.00-0.03); Imm Gran Pct Auto 0.4 % (0.0-0.4); Lymphocytes Absolute Auto 1.8 X10*3/uL (1.2-4.9); Lymphocytes Percent Auto 31.9 % (20-40); Mean Corpuscular Volume 85.4 fL (80.0-98.0); Mean Platelet Volume 10.7 fL (9.4-12.3); Monocytes Absolute Auto 0.4 X10*3/uL (0.1-1.2); Monocytes Percent Auto 7.6 % (2-11); Neutrophils Absolute Auto 3.2 x10*3/uL (2.0-8.3); Neutrophils Percent Auto 58.1 % (45-73); Platelet Count 196 X10*3/uL (160-400); Red Blood Count 4.86 X10*6/uL (4.20-5.50); Red Cell Distribution Width 13.2 % (11.0-16.0); White Blood Count 5.5 X10*3/uL (4.8-10.8)
[2023-12-16 13:55] LABS: Alanine Aminotransferase 31 U/L (0-31); Albumin Level 4.1 g/dL (3.5-5.0); Alkaline Phosphatase 109 U/L (39-117); Anion Gap 16 (12-20); Aspartate Amino Transferase 24 U/L (5-31); Bilirubin Total 0.7 mg/dL (0.0-1.0); Blood Urea Nitrogen 16 mg/dL (9-16); Carbon Dioxide 21 mmol/L (22-29); Chloride 108 mmol/L (96-108); Creatinine Clr Calc Pharmacy 62.9; Estimated Glomerular Filt Rate > 60; Glucose Random 109 mg/dL (60-115); Magnesium 1.9 mg/dL (1.6-2.6); Potassium 3.7 mmol/L (3.3-5.1); Sodium 141 mmol/L (135-145); Total Protein 6.8 g/dL (6.5-8.0)
[2023-12-16 14:10] LABS: Troponin-I High Sensitivity < 2.7 ng/L (<3.5-17.0)
[2023-12-16] MEDS: diazePAM 2 MG TABLET PO (14:23)
[2023-12-16] MEDS: Meclizine HCl 25 MG TABLET PO ×2 (14:24→20:10)
[2023-12-16] MEDS: 0.9 % Sodium Chloride 1,000 ML 999 ML IV ×2 (14:58)
[2023-12-16] MEDS: ondansetron HCL 4 MG/2 ML VIAL IVPUSH (15:45)
[2023-12-16] MEDS: iohexoL 350 MG/ML 100 ML INFUS..BTL 70 ML IV (16:45)
--- NOTE | 2023-12-16 18:13 | P.HPHOSP_ITS ---
History of Present Illness Date of Service: 12/16/23 Attending physician on admission: Tavia Laura Chief Complaint: Dizziness Pt is a 68-year-old female with a PMH significant for?migraines but otherwise healthy who presents to the ED for evaluation of intractable dizziness since this afternoon. Patient states that for the past couple of weeks she has had intermittent ?waves of dizziness? that would last for approximately 30 seconds and occur 1 to 2 times a day. Did not experience any room spinning until last night when had a more prolonged episode of dizziness that lasted for approximately 1 hour. Had nausea, vomiting, and diarrhea x1. This afternoon patient was at lunch when symptoms of dizziness/room spinning returned. She attempted to stand and vomited which then prompted calling EMS to bring her to the ED for further evaluation. Symptoms are worsened with head movement or position changes. Reports her vision ?swims? when dizzy. Had experienced a few moments of tingling in the tips of her fingers. Denies headache. No acute hearing loss or tinnitus. Denies ear pain. No fever or chills. Denies chest pain/pressure, palpitations. No shortness a breath or difficulty breathing. Denies abdominal pain. In the ED pt was hypertensive to 153/73. Patient was unable to perform orthostatics since she was unable to stand. Labs were grossly unremarkable and baseline for patient. No leukocytosis. Stable H&H. No electrolyte abnormalities. CT?of head negative for acute intracranial hemorrhage or edematous territorial infarction. CTA of head and neck negative for proximal occlusion or flow-limiting stenosis. EKG demonstrated sinus bradycardia of 59 with no evidence of ST elevations or depressions. Pt was treated with diazepam, meclizine, IVF, ondansetron. Pt will be admitted to the hospital under observation for treatment and further evaluation of intractable dizziness concerning for BPPV. Review of Systems 2 Review of Systems: Dizziness/room spinning Minor tingling in fingers bilaterally Nausea, vomiting, diarrhea Denies abdominal pain No headache Denies hearing loss, earache No chest pain/pressure or palpitations [facility] Medical History Medicare annual wellness visit, subsequent Hypercalcemia Annual physical exam Colon cancer screening Abnormal Pap smear of cervix Family History Brother Polycythemia vera Father FH: prostate cancer Surgical History History of cataract surgery Strabismus Social History Housing: House Alcohol intake: never Patient Tobacco Use Status: Never used Tobacco Smoked in Last 30 Days: No e-Cigarette/Vaping Use: Never Used Second Hand Smoke Exposure: No Use of substances other than those prescribed or required for medical reasons: No Advance Directives: Yes Advance Directives on File: Yes Advance Directives Date on File: 12/01/22 Do you have a plan to hurt others: No Plan service: No Current occupational status: retired Cognitive needs: No Hearing needs: No Vision needs: Yes (glasses) Meds Allergies Allergy/AdvReac Type Severity Reaction Status Date / Time penicillin V Allergy Unknown hives Verified 12/16/23 13:20 Home Medications ?Medication ?Instructions ?Recorded ?Confirmed ?Last Taken ?Type omega-3 fatty acids 1,000 mg 1,000 mg PO DAILY 10/19/20 02/02/23 Unknown History capsule (Fish Oil Concentrate) acetaminophen 500 mg tablet 500 mg PO Q6H PRN 01/28/22 02/02/23 Unknown History (Tylenol Extra Strength) Physical Exam 2 Vital Signs and Narrative: Vital Signs: Last Vital Signs Temp 97.6 F 12/16/23 16:00 Pulse 74 12/16/23 16:00 Resp 12 12/16/23 16:00 BP 152/74 H 12/16/23 16:00 Pulse Ox 98 12/16/23 16:00 O2 Del Method Room Air 12/16/23 16:00 BMI result Body Mass Index 25.0 General: AOx3, no acute distress Resp: CTA bilaterally CVS: S1, S2, RRR GI: +BS, NT, no distention Skin: Warm, dry Neuro: Cranial nerves II-XII grossly intact bilaterally. Motor grossly intact bilaterally. No focal deficits. No nystagmus. Extremities: No edema Psych: Appropriate affect Results Labs 12/16/23 13:38 12/16/23 13:38 Labs: Laboratory Results - last 24 hr 12/16/23 13:38 MCV 85.4 MCH 29.0 MCHC 34.0 RDW 13.2 Plt Count 196 MPV 10.7 Immature Gran % (Auto) 0.4 Neut % (Auto) 58.1 Lymph % (Auto) 31.9 [place] % (Auto) 7.6 Eos % (Auto) 1.3 Baso % (Auto) 0.7 Lymph # (Auto) 1.8 [place] # (Auto) 0.4 Eos # (Auto) 0.1 Baso # (Auto) 0.0 Abs Immat Gran (auto) 0.02 Absolute Neuts (auto) 3.2 Absolute Nucleated RBC 0.000 Nucleated RBC % (auto) 0.0 Anion Gap 16 Estim Creat Clear Calc 62.9 Estimated GFR > 60 Random Glucose 109 Calcium 11.0 H D Magnesium 1.9 Total Bilirubin 0.7 AST 24 ALT 31 Alkaline Phosphatase 109 Troponin I High Sens < 2.7 Total Protein 6.8 Albumin 4.1 Imaging Radiologist's Impressions: Impressions Head CT 12/16/23 13:39 IMPRESSION: 1. No evidence of acute intracranial hemorrhage or edematous territorial infarction. 2. Mild underlying microangiopathy and generalized cerebral volume loss. 3. Nonspecific expansile lesion surrounding the right mandibular condyle with relatively smooth remodeling of the regional osseous structures. While this appearance is nonspecific it may represent a hyperplastic synovial process, such as pigmented villonodular synovitis (PVNS), synovial osteochondromatosis, or crystalline/amyloid arthropathies. 4. 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 Electronically signed by: Sridhar Hardin DO 12/16/2023 03:14 PM EDT RP Head/Neck CTA 12/16/23 16:06 IMPRESSION: 1. No evidence of acute intracranial hemorrhage or edematous territorial infarction. 2. CTA of the head and neck without proximal occlusion or flow-limiting stenosis. 3. Nonspecific expansile lesion surrounding the right mandibular condyle with relatively smooth remodeling of the regional osseous structures. While this appearance is nonspecific it may represent a hyperplastic synovial process, such as pigmented villonodular synovitis (PVNS), synovial osteochondromatosis, or crystalline/amyloid arthropathies. 4. Moderate multilevel degenerative spondyloarthropathy of the cervical spine. Electronically signed by: Sridhar Hardin DO 12/16/2023 04:58 PM EDT RP Assessment and Plan (1) Dizziness: Status: Acute Plan Pt is a 68-year-old female with a PMH significant for?migraines but otherwise healthy who presents to the ED for evaluation of intractable dizziness since this afternoon. Pt will be admitted to the hospital under observation for treatment and further evaluation of intractable dizziness concerning for BPPV. Intractable dizziness Sensation of room spinning last night x1 hour, today since noon Denies ear pain, changes to hearing, tinnitus, neurological exam nonfocal CT of head and CTA of head/neck negative Concerning for BPPV, vestibular neuritis less likely Will treat with meclizine 25 mg t.i.d. Failed orthostatics due to not being able to stand Repeat orthostatics in the morning Neurology consult PT consult for possible Lucy maneuver Monitor on telemetry Migraines Continue sumatriptan p.r.n. Full Code Attending:?Dr. Laura DVT Prophylaxis: Lovenox As patient is unable to tolerate standing or ambulation, she will be admitted to the hospital under observation for treatment and further evaluation of intractable dizziness likely secondary to BPPV that will require scheduled meclizine, Neurology consult, as well as PT consult for possible Lucy maneuver. Quality Stroke Does the patient have a stroke diagnosis?: No VTE Prior VTE?: No VTE Risk Level:: Medical - moderate - high VTE Device Contraindication: Treatment Not Indicated VTE Drug Contraindication: N/A - Med Ordered
[2023-12-16] MEDS: Acetaminophen 325 MG TABLET 650 MG PO (20:10)
[2023-12-16] MEDS: Enoxaparin Sodium 40 MG/0.4 ML SYRINGE SUBCUT (20:10)
[2023-12-17 07:47] VITALS: BP 137/68; PULSE 65
[2023-12-17 07:49] VITALS: BP 149/71; PULSE 70
[2023-12-17 07:51] VITALS: BP 140/78; PULSE 77
--- NOTE | 2023-12-17 07:54 | PC.NURSE ---
Pt states she is feeling much better this moring and dizziness has resolved. Orthostatic Vitals rechecked and patient asymptomatic throughout assessment and denies any dizziness or nausea.
--- NOTE | 2023-12-17 08:35 | PHA.MEDREC ---
Addendum entered by Jacqueline Lozada RPh 12/17/23 09:20: [facility] REVIEWED Original Note: Pharmacy Consult ? Medication Reconciliation Pharmacy has completed the medication reconciliation.
[2023-12-17] MEDS: Meclizine HCl 25 MG TABLET PO (08:57)
[2023-12-17] MEDS: Acetaminophen 325 MG TABLET 650 MG PO (08:58)
[2023-12-17] MEDS: 0.9 % Sodium Chloride Flush 3 ML SYRINGE IVFLUSH (08:59)
--- NOTE | 2023-12-17 10:15 | P.DS_ITS ---
DS: Providers Provider Date of Service: 12/17/23 Date of admission: 12/16/23 18:46 Date of discharge: 12/17/23 Primary care physician: Miranda Casillas MD Admitting clinician: Tavia Laura Attending physician on admission: Tavia Laura Consults: 12/16/23 18:46 Consult to Neurology Routine Consulting Provider: [facility] Reason for consultation: Intractable dizziness, ?BPPV Attending physician on discharge: Tavia Laura Discharging clinician: Tavia Laura DS: Diagnosis Discharge Diagnosis (1) Dizziness: Status: Acute DS: Summary Hospital Course Hospital Course: HPI: 68-year-old female with a PMH significant for?migraines but otherwise healthy who presents to the ED for evaluation of intractable dizziness since this afternoon. Patient states that for the past couple of weeks she has had intermittent ?waves of dizziness? that would last for approximately 30 seconds and occur 1 to 2 times a day. Did not experience any room spinning until last night when had a more prolonged episode of dizziness that lasted for approximately 1 hour. Had nausea, vomiting, and diarrhea x1. This afternoon patient was at lunch when symptoms of dizziness/room spinning returned. She attempted to stand and vomited which then prompted calling EMS to bring her to the ED for further evaluation. Symptoms are worsened with head movement or position changes. Reports her vision ?swims? when dizzy. Had experienced a few moments of tingling in the tips of her fingers. Denies headache. No acute hearing loss or tinnitus. Denies ear pain. No fever or chills. Denies chest pain/pressure, palpitations. No shortness a breath or difficulty breathing. Denies abdominal pain. In the ED pt was hypertensive to 153/73. Patient was unable to perform orthostatics since she was unable to stand. Labs were grossly unremarkable and baseline for patient. No leukocytosis. Stable H&H. No electrolyte abnormalities. CT?of head negative for acute intracranial hemorrhage or edematous territorial infarction. CTA of head and neck negative for proximal occlusion or flow-limiting stenosis. EKG demonstrated sinus bradycardia of 59 with no evidence of ST elevations or depressions. Pt was treated with diazepam, meclizine, IVF, ondansetron. Pt will be admitted to the hospital under observation for treatment and further evaluation of intractable dizziness concerning for BPPV. Hospital course: patient admitted for intractable dizziness especilaly moving her head ,no other neurologic symptoms,vertiago positional ( more with moving her head) -cta head/neck negative ,orthostatics negative ,patient responded well to meclizine. feels much better today. will be going home with meclizine as needed .follow up with pcp. cta -incidental finding shows Nonspecific expansile lesion surrounding the right mandibular condyle with relatively smooth remodeling of the regional osseous structures. While this appearance is nonspecific it may represent a hyperplastic synovial process, such as pigmented villonodular synovitis (PVNS), synovial osteochondromatosis, or crystalline/amyloid arthropathies. patient currently asymptomatic , follow up with pcp outpatient if needed any further workup. plan: continue meclizine prn Follow-up with PCP for above, also the incidental CT finding as above. also d/w patient she will need mri w&wo as suggested by neuro(nonurgent),,she wants to do it outpatient. Further management outpatient Above management discussed with the patient and her at bedside in detail length, they both understand and in agreement with the plan, time spent 40 minute. Time Attestation Total time managing care of this patient today: 40 mintues. Discharge Coordination Time (in mins): 40 min Quality: Safe Use of Opioids Does Pt have an Active Cancer Diagnosis on the Problem List?: No Quality: Stroke Does the patient have a stroke diagnosis?: No Physical Exam Vital Signs: Vital Signs: Last Vital Signs Temp 98.0 F 12/16/23 23:31 Pulse 77 12/17/23 07:51 Resp 15 12/16/23 23:31 BP 140/78 H 12/17/23 07:51 Pulse Ox 94 12/16/23 23:31 O2 Del Method Room Air 12/16/23 23:31 BMI result Body Mass Index 25.0 Appearance: Alert.? Oriented X3.? Eyes: Pupils equal, round and reactive to light.? Sclera nonicteric.? ENT: Pharynx normal.? Moist mucous membranes. cvs: rrr, [id number] , no murmur res: clear to auscultation ,no rhonchii or wheezing abd: no rebound or guarding ,nt, bs present. ext pulses present , no cyanosis . neuro: axo3 , nonfocal. DS: Data Data Completed and Pending Labs on day of discharge: Laboratory Results - last 24 hr 12/16/23 13:38 WBC 5.5 RBC 4.86 Hgb 14.1 Hct 41.5 MCV 85.4 MCH 29.0 MCHC 34.0 RDW 13.2 Plt Count 196 MPV 10.7 Immature Gran % (Auto) 0.4 Neut % (Auto) 58.1 Lymph % (Auto) 31.9 [place] % (Auto) 7.6 Eos % (Auto) 1.3 Baso % (Auto) 0.7 Lymph # (Auto) 1.8 [place] # (Auto) 0.4 Eos # (Auto) 0.1 Baso # (Auto) 0.0 Abs Immat Gran (auto) 0.02 Absolute Neuts (auto) 3.2 Absolute Nucleated RBC 0.000 Nucleated RBC % (auto) 0.0 Sodium 141 Potassium 3.7 Chloride 108 Carbon Dioxide 21 L Anion Gap 16 BUN 16 Creatinine 0.78 Estim Creat Clear Calc 62.9 Estimated GFR > 60 Random Glucose 109 Calcium 11.0 H D Magnesium 1.9 Total Bilirubin 0.7 AST 24 ALT 31 Alkaline Phosphatase 109 Troponin I High Sens < 2.7 Total Protein 6.8 Albumin 4.1 Imaging Chest x-ray: Radiologist's impression: ITS Impressions Head CT 12/16/23 13:39 IMPRESSION: 1. No evidence of acute intracranial hemorrhage or edematous territorial infarction. 2. Mild underlying microangiopathy and generalized cerebral volume loss. 3. Nonspecific expansile lesion surrounding the right mandibular condyle with relatively smooth remodeling of the regional osseous structures. While this appearance is nonspecific it may represent a hyperplastic synovial process, such as pigmented villonodular synovitis (PVNS), synovial osteochondromatosis, or crystalline/amyloid arthropathies. 4. 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 Electronically signed by: Sridhar Hardin DO 12/16/2023 03:14 PM EDT Head/Neck CTA 12/16/23 16:06 IMPRESSION: 1. No evidence of acute intracranial hemorrhage or edematous territorial infarction. 2. CTA of the head and neck without proximal occlusion or flow-limiting stenosis. 3. Nonspecific expansile lesion surrounding the right mandibular condyle with relatively smooth remodeling of the regional osseous structures. While this appearance is nonspecific it may represent a hyperplastic synovial process, such as pigmented villonodular synovitis (PVNS), synovial osteochondromatosis, or crystalline/amyloid arthropathies. 4. Moderate multilevel degenerative spondyloarthropathy of the cervical spine. Electronically signed by: Sridhar Hardin DO 12/16/2023 04:58 PM EDT RP Discharge Plan Discharge Anticipated Discharge Date/Time: 12/17/23 10:09 Patient Disposition: Home, Self-Care Discharge Diagnosis: possible bppv Referrals: Po,Miranda Méndez MD [Primary Care Provider] - 2 days Discharge Medications: New meclizine 25 mg tablet 25 mg PO DAILY PRN (Reason: dizziness) Qty: 14 0RF Continued cholecalciferol (vitamin D3) 50 mcg (2,000 unit) capsule 50 mcg PO DAILY 90 Days Qty: 90 3RF omega 4-jbm-ukf-fish oil [Fish Oil] 300-1,000 mg Capsule,Delayed Release(Dr/ Ec) 1 cap PO DAILY Discharge Orders: Discharge Order (Routine); Ordered 12/17/23 Ordered By: Tavia Laura Diet: Advance to usual diet Activity on Discharge: As tolerated Stand Alone Forms: Patient Portal Discharge page Print Language: Citizen Of [place] Care Plan Goals: patient admitted for intractable dizziness -cta head/neck negative ,orthostatics negative ,patient reponded well to meclizine. feels much better today. will be going home with meclizine as needed .follow up with pcp. cta -incidental finding shows Nonspecific expansile lesion surrounding the right mandibular condyle with relatively smooth remodeling of the regional osseous structures. While this appearance is nonspecific it may represent a hyperplastic synovial process, such as pigmented villonodular synovitis (PVNS), synovial osteochondromatosis, or crystalline/amyloid arthropathies. patient currently asymptomatic , follow up with pcp outpatient if needed any further workup. Health Concerns: as above. Plan of Treatment: as above. Assessment: as above. Patient Instructions: Vertigo (DC), Dizziness (ED) Discharge Date/Time: 12/17/23 11:22
--- NOTE | 2023-12-17 10:28 | P.CNNE_ITS ---
History of Present Illness Data of Consult Service Date: 12/17/23 Primary Care Provider: Miranda Casillas MD [facility] Reason for consult: Dizziness 68 years old woman who probably has underlying history of migraine but no history of hypertension diabetes or similar illness started having episodes of dizziness few weeks ago. There was no obvious trigger. Dizziness was described as a sense of motion and lasting for few seconds to little more. Couple of weeks ago she had a more severe episode associated with nausea vomiting and diarrhea and sweating. One episode also caused a fullness feeling in her ears. There was no change in hearing or ear pain. She denied any associated cold or flu-like illness or upper respiratory type type of symptoms with any of these episodes. She was having mild head pressure but no severe headache or migraine type of headache. There was no rash. There was no history of any recent neck manipulation or trauma. She denied any other symptoms including any symptom of years or eyes or change in mental status or speech or language problem. Review of Systems 2 Review of Systems: As described in [facility] Past Medical History Medical History Medicare annual wellness visit, subsequent Hypercalcemia Annual physical exam Colon cancer screening Abnormal Pap smear of cervix Family History Family History Brother Polycythemia vera Father FH: prostate cancer Surgical History Surgical History History of cataract surgery Strabismus Social History Social History Housing: House Alcohol intake: never Patient Tobacco Use Status: Never used Tobacco Smoked in Last 30 Days: No e-Cigarette/Vaping Use: Never Used Second Hand Smoke Exposure: No Use of substances other than those prescribed or required for medical reasons: No Advance Directives: Yes Advance Directives on File: Yes Advance Directives Date on File: 12/01/22 Do you have a plan to hurt others: No Plan Nutrition Risks: No Nutritional Risk service: No Current occupational status: retired Cognitive needs: No Hearing needs: No Vision needs: Yes (glasses) Meds Allergies Allergy/AdvReac Type Severity Reaction Status Date / Time penicillin V Allergy Unknown hives Verified 12/16/23 13:20 Active Medications: Current Medications Acetaminophen (Acetaminophen 325 Mg Tablet) 650 mg PO Q6H PRN PRN Reason: Pain, Mild (Pain Scale 1-3), fever or headache Last Admin: 12/17/23 08:58 Dose: 650 mg Benzonatate (Benzonatate 100 Mg Capsule) 100 mg PO TID PRN PRN Reason: Cough Calcium Carbonate (Calcium Carbonate 750 Mg Tab.Chew) 750 mg PO Q4H PRN PRN Reason: Heartburn Enoxaparin Sodium (Enoxaparin Sodium 40 Mg/0.4 Ml Syringe) 40 mg SUBCUT Q24H [facility] Last Admin: 12/16/23 20:10 Dose: 40 mg Magnesium Hydroxide (Milk Of Magnesia 30 Ml Oral.Susp) 30 ml PO DAILY PRN PRN Reason: Constipation Meclizine HCl (Meclizine Hcl 25 Mg Tablet) 25 mg PO TID [facility] Last Admin: 12/17/23 08:57 Dose: 25 mg Melatonin (Melatonin 3 Mg Tablet) 6 mg PO BEDTIME PRN PRN Reason: Insomnia Ondansetron HCl (Ondansetron Hcl 4 Mg/2 Ml Vial) 4 mg IVPUSH Q8H PRN PRN Reason: Nausea and Vomiting Sodium Chloride (0.9 % Sodium Chloride Flush 3 Ml Syringe) 3 ml IVFLUSH QSHIFT [facility] Last Admin: 12/17/23 08:59 Dose: 3 ml Home Medications ?Medication ?Instructions ?Recorded ?Confirmed ?Last Taken ?Type omega 7-pcb-chh-fish oil 300 1 cap PO DAILY 12/17/23 12/17/23 12/16/23 History mg-1,000 mg capsule,delayed release (Fish Oil) Physical Exam 2 Vital Signs: Vital Signs: Last Vital Signs Temp 98.0 F 12/16/23 23:31 Pulse 77 12/17/23 07:51 Resp 15 12/16/23 23:31 BP 140/78 H 12/17/23 07:51 Pulse Ox 94 12/16/23 23:31 O2 Del Method Room Air 12/16/23 23:31 BMI result Body Mass Index 25.0 Neuro: Other: She is alert and awake with normal spontaneity of speech fluency comprehension and affect. Face is symmetrical. Visual parham are full. Extraocular muscles were intact. [id number] and zrjg-hw-umra testing is normal. Deep tendon reflexes are trace with flexor plantars. Speech is normal. Results Labs 12/16/23 13:38 12/16/23 13:38 Labs: Short CBC 12/16/23 Range/Units 13:38 WBC 5.5 (4.8-10.8) X10*3/uL Hgb 14.1 (12.0-16.0) g/dl Hct 41.5 (37.0-47.0) % Plt Count 196 (160-400) X10*3/uL BMP 12/16/23 13:38 Sodium 141 Potassium 3.7 Chloride 108 Carbon Dioxide 21 L BUN 16 Creatinine 0.78 Calcium 11.0 H D Liver Function 12/16/23 Range/Units 13:38 Total Bilirubin 0.7 (0.0-1.0) mg/dL AST 24 (5-31) U/L ALT 31 (0-31) U/L Alkaline Phosphatase 109 (39-117) U/L Albumin 4.1 (3.5-5.0) g/dL Head CT revealed no significant abnormality. CTA did not reveal any vascular lesion. Assessment and Plan (1) Dizziness: Status: Acute 68 years old woman with episodic dizziness of word ago type started few weeks ago. One episode cause severe nausea vomiting diarrhea and sweating, and another episode fullness feeling in her ears. With that, she denied any cold or flu-like illness or rash. Exam was nonfocal. Imaging did not reveal any significant abnormality to explain this symptom. Likely diagnoses are Menier's syndrome in evolution, benign paroxysmal positional vertigo, or any other vestibular system pathology. She was reassured and educated. An MRI of brain with and without contrast with emphasis on cerebellar pontine angle is recommended for screening. Otherwise treatment of this type of problem is conservative and symptomatic. Meclizine can be use as needed. Procedures Date of Service Date of Service: 12/17/23
[2023-12-17 11:22] VITALS: BP 131/68; PULSE 98; RESP 14; TEMP 36.6; O2SAT 98
[2023-12-17 11:28] VITALS: BP 131/68; PULSE 58; RESP 18; TEMP 36.6; O2SAT 98
== END 2023-12-17 11:22 | disposition home or self-care (01) ==
LOC: HO.ED 18:30 → HO.EDOVER 19:08
PROVIDERS: Physician Assistant; Admitting Provider Student in an Organized Health Care Education/Training Program; Emergency Provider Emergency Medicine; PCP Internal Medicine; Visit Provider Internal Medicine
DX: R42 Dizziness and giddiness (principal); R11.2 Nausea with vomiting, unspecified; R19.7 Diarrhea, unspecified; R61 Generalized hyperhidrosis; E78.5 Hyperlipidemia, unspecified; M85.80 Other specified disorders of bone density and structure, unspecified site; E53.8 Deficiency of other specified B group vitamins; E21.3 Hyperparathyroidism, unspecified; R51.9 Headache, unspecified; E11.9 Type 2 diabetes mellitus without complications; I10 Essential (primary) hypertension; Z79.899 Other long term (current) drug therapy
CPT/HCPCS: 36415; 70450; 70496; 70498; 80053; 83735; 84484; 85025; 93005; 96361; 96372; 96374; 99222; 99285; J1650; J2405; Q9967

== ENCOUNTER → 2023-12-16 18:46 | Outpatient (BNV) | payer MEDICARE, SELFPAY | PROVIDERS: Admitting Provider Student in an Organized Health Care Education/Training Program; Emergency Provider Emergency Medicine; PCP Internal Medicine; Visit Provider Student in an Organized Health Care Education/Training Program | DX: R42 Dizziness and giddiness (principal) | CPT/HCPCS: 99222; 99239 ==

== ENCOUNTER → 2023-12-16 18:46 | Outpatient (BNV) | payer MEDICARE, SELFPAY | PROVIDERS: Admitting Provider Student in an Organized Health Care Education/Training Program; Emergency Provider Emergency Medicine; PCP Internal Medicine; Visit Provider Psychiatry & Neurology Neurology | DX: R42 Dizziness and giddiness (principal) | CPT/HCPCS: 99222 ==

== ENCOUNTER 2023-12-21 08:50 | Outpatient (AMB) | payer MEDICARE, SELFPAY ==
--- NOTE | 2023-12-21 08:59 | A.OFFPC_ITS ---
Vital Signs 12/21/23 09:00 Height 5 ft 5 in Weight 144 lb 6 oz BMI 24.0 BP 132/84 Blood Pressure Location Rt brachial Position Sitting Pulse 66 Pulse Source Pulse Oximeter Pulse Oximetry (%) 96 Oxygen Delivery Method Room Air Intake Visit Reasons: [facility] [place] Vertigo Allergies penicillin V Allergy (Unknown, Verified 12/21/23 09:00) hives Medication List - Last Reconciled 12/21/23 by Lia Urban PA-C cholecalciferol (vitamin D3) 50 mcg PO DAILY 90 days meclizine 25 mg PO DAILY PRN omega 7-scu-lnv-fish oil 300-1,000 mg (Fish Oil) 1 cap PO DAILY Tobacco use date assessed: 12/09/21 [facility] Medical History Medicare annual wellness visit, subsequent Hypercalcemia Annual physical exam Colon cancer screening Abnormal Pap smear of cervix Surgical History History of cataract surgery Strabismus Family History Brother Polycythemia vera Father FH: prostate cancer Social History Housing: House Alcohol intake: never Patient Tobacco Use Status: Never used Tobacco e-Cigarette/Vaping Use: Never Used Second Hand Smoke Exposure: No Advance Directives Date on File: 12/01/22 service: No Current occupational status: retired Cognitive needs: No Hearing needs: No Vision needs: Yes (glasses) Questionnaire Thrive Questionnaire Date Thrive assessed: 02/02/23 JOSE-7 AMB Questionnaire JOSE-7 Date JOSE - 7 assessed: 02/02/23 Source: Developed by Drs. Tay Juares, Jeanine Jimenes, Ronny Paige and colleagues, with an educational chaparro from [employer]. Physical exam (Primary Care) Vital Signs: Last Vital Signs Pulse 66 12/21/23 09:00 BP 132/84 12/21/23 09:00 Pulse Ox 96 12/21/23 09:00 Oxygen Delivery Method Room Air 12/21/23 09:00 BMI result Body Mass Index 24.0 Tobacco/Smoking Status: Tobacco use Status Tobacco use date assessed 12/21/23 12/21/23 09:03 Patient Tobacco Use Status Never used Tobacco 12/21/23 09:03 e-Cigarette/Vaping Use Never Used 12/21/23 09:03 PHQ-9: PHQ-9 Score PHQ-9: Total score 0 12/21/23 09:06 Thrive Assessment: Date of Thrive Assessment Date Thrive assessed 12/21/23 12/21/23 09:03 Coding
--- NOTE | 2023-12-21 08:59 | MHC.PC.OV ---
Vital Signs 12/21/23 09:00 Height 5 ft 5 in Weight 144 lb 6 oz BMI 24.0 BP 132/84 Blood Pressure Location Rt brachial Position Sitting Pulse 66 Pulse Source Pulse Oximeter Pulse Oximetry (%) 96 Oxygen Delivery Method Room Air Intake Visit Reasons: [facility] Customer Service Representative Required: No Accompanied by: Self / Same As Patient Allergies penicillin V Allergy (Unknown, Verified 12/21/23 09:00) hives Medication List - Last Reconciled 12/21/23 by Lia Urban PA-C cholecalciferol (vitamin D3) 50 mcg PO DAILY 90 days meclizine 25 mg PO DAILY PRN omega 9-ahg-jqi-fish oil 300-1,000 mg (Fish Oil) 1 cap PO DAILY Tobacco use date assessed: 12/21/23 Fall risk assessment: No Falls in past year Last assessed Fall Risk: 12/21/23 Dental Screening Dental Screen Date: 12/21/23 Did you have a dental visit in the last 12 months?: Yes Did you have a dental problem in the last 6 months where you did not have access to dental care?: No Was dental information given to patient?: Patient has dentist HPI [facility] HPI Details 68-year-old female with a history of hyperparathyroidism vitamin-D deficiency B12 deficiency hypercholesterolemia osteopenia migraine coming in for hospital discharge follow up.? In review of the notes, patient was seen and [facility] ED 12/16/2023 for ways of dizziness.? In the ER patient was hypertensive with CT and CTA negative for any acute findings.? Treated with diazepam, meclizine, IV fluids, Zofran and admitted for further observation.? Patient was discharged home 12/17/2023 to continue on meclizine as needed and recommended a nonemergent head MRI with and without contrast or further evaluation of incidental finding on CT. IMPRESSION:? Nonspecific expansile lesion surrounding the right mandibular? condyle with relatively smooth remodeling of the regional osseous? structures. While this appearance is nonspecific it may represent a? hyperplastic synovial process, such as pigmented villonodular synovitis? (PVNS), synovial osteochondromatosis, or crystalline/amyloid? arthropathies. Patient states she is still having residual dizziness and now having right ear blockage. She states her hearing is normal. The dizziness feels like the room is spinning and happens with quick head movements. She has used the meclizine 1 since discharge which did relieve dizziness however made her very tired. [facility] Medical History Medicare annual wellness visit, subsequent Hypercalcemia Annual physical exam Colon cancer screening Abnormal Pap smear of cervix Surgical History History of cataract surgery Strabismus Family History Brother Polycythemia vera Father FH: prostate cancer Social History Housing: House Alcohol intake: never Patient Tobacco Use Status: Never used Tobacco e-Cigarette/Vaping Use: Never Used Second Hand Smoke Exposure: No Advance Directives Date on File: 12/01/22 service: No Current occupational status: retired Cognitive needs: No Hearing needs: No Vision needs: Yes (glasses) Questionnaire PHQ-9 Over the last 2 weeks, how often have you been bothered by any of the following problems? 1. Little interest or pleasure in doing things: not at all 2. Feeling down, depressed, or hopeless: not at all 3. Trouble falling or staying asleep, or sleeping too much: not at all 4. Feeling tired or having little energy: not at all 5. Poor appetite or overeating: not at all 6. Feeling bad about yourself - or that you are a failure or have let yourself or your family down: not at all 7. Trouble concentrating on things, such as reading the newspaper or watching television: not at all 8. Moving or speaking so slowly that other people could have noticed. Or the opposite - being so fidgety or restless that you have been moving around a lot more than usual: not at all 9. Thoughts that you would be better off or of hurting yourself in some way: not at all Total score: 0 Depression Screening Interpretation: Negative Depression Screening Done: Yes Source: Developed by Drs. Tay Juares, Jeanine Jimenes, Ronny Paige and colleagues, with an educational chaparro from [email or web address]. Thrive Questionnaire Date Thrive assessed: 12/21/23 I am a: Patient What is your living situation today?: I have a steady place to live Within the past 12 months, did the food you bought not last and you didn't have the money to get more?: Never true Within the past 12 months, did you worry whether your food would run out before you got money to buy more?: Never true Do you have trouble paying for medicines?: No Do you have trouble getting transportation to medical appointments?: No Do you have trouble paying your heating and electricity bill?: No Do you have trouble taking care of your child, family member or friend?: No Do you have trouble with day-to-day activities such as bathing, preparing meals, shopping, managing finances, etc.?: No Are you currently unemployed and looking for a job?: No Are you interested in more education?: No Please select the resources that you would like help with: None Currently or been in a relationship where the following occur: No concerns reported THRIVE Score: 0 AUDIT C Alcohol Use Questionnaire (AUDIT-C) 1. How often do you have a drink containing alcohol?: Never 3. How often do you have six or more drinks on one occasion?: Never Total Score: 0 JOSE-7 AMB Questionnaire JOSE-7 Date JOSE - 7 assessed: 12/21/23 Feeling nervous, anxious, or on edge: 0 = Not at all Not being able to stop or control worryin = Not at all Worrying too much about different things: 0 = Not at all Trouble relaxin = Not at all Being so restless that it is hard to sit still: 0 = Not at all Becoming easily annoyed or irritable: 0 = Not at all Feeling afraid as if something awful might happen: 0 = Not at all Total JOSE-7 score (0-4 normal; 5-9 mild; 10-14 moderate; 15-21 severe): 0 Source: Developed by Drs. Tay Juares, Jeanine Jimenes, Ronny Paige and colleagues, with an educational chaparro from [email or web address]. Review of Systems Const Denies body aches, Denies chills, Denies fever(s), Reports headache(s) and Denies poor appetite Eyes Reports no additional complaints ENT Details: Right ear feeling blocked Reports Normal hearing present, Reports dizziness and Reports headache(s) Card Denies chest pain, Denies syncope, Denies edema, Denies irregular heart rhythm, Reports lightheadedness and Denies dyspnea Resp Denies cough and Denies dyspnea GI Denies abdominal pain, Reports nausea and Reports vomiting (Occasional with dizziness) Reports no additional complaints Musc Reports no additional complaints and Denies abnormal gait Skin/Breast Reports system reviewed and no additional complaints, except as documented Neuro Reports Normal hearing present, Denies abnormal gait, Reports dizziness, Denies syncope and Reports headache(s) Psych Reports no additional complaints Physical exam (Primary Care) Vital Signs: Last Vital Signs Pulse 66 12/21/23 09:00 BP 132/84 12/21/23 09:00 Pulse Ox 96 12/21/23 09:00 Oxygen Delivery Method Room Air 12/21/23 09:00 BMI result Body Mass Index 24.0 Tobacco/Smoking Status: Tobacco use Status Tobacco use date assessed 12/21/23 12/21/23 09:03 Patient Tobacco Use Status Never used Tobacco 12/21/23 09:03 e-Cigarette/Vaping Use Never Used 12/21/23 09:03 PHQ-9: PHQ-9 Score PHQ-9: Total score 0 12/21/23 09:06 Depression Screening Interpretation: Negative Thrive Assessment: Date of Thrive Assessment Date Thrive assessed 12/21/23 12/21/23 09:03 Currently or been in a relationship where the following occur: No concerns reported Const General: cooperative, healthy appearing, comfortable and no acute distress Orientation/consciousness: patient oriented x3 HENMT Head: Yes normocephalic Ears: hearing grossly normal bilaterally and Abnormal EAC present (Mild cerumen in bilateral ears) General nose exam: Normal external nose present Eyes General: appearance normal, both eyes and all related structures Conjunctivae: conjunctivae normal Neck Neck: Yes full ROM and Yes no lymphadenopathy Resp Effort & Inspection: normal respiratory effort Auscultation: clear to auscultation bilaterally, no crackles, no rales, no rhonchi and no wheezes Cardio Rate: regular rate Rhythm: regular rhythm Skin General skin exam: no rashes or lesions noted Neuro General: patient oriented x3 Cranial nerves: Yes Normal hearing present Gait exam (Neuro): Normal gait present Extrem General: Yes normal to inspection, Yes full ROM and No edema Psych Affect: normal affect Attitude: cooperative Insight: Good insight present (Psych) Judgement: Good judgement present (Psych) Assessment and Plan Assessment & Plan (1) Benign paroxysmal positional vertigo: Code(s): H81.10 - Benign paroxysmal vertigo, unspecified ear Plan: Patient was referred to vestibular therapy for treatment of BPPV. She continues to have occasional dizziness and room spinning sensation. Continue take meclizine as needed for dizziness. (2) Mass of face: Code(s): R22.0 - Localized swelling, mass and lump, head Plan: MRI ordered for further evaluation of mandibular mass. No concerns or pain associated with this mass. Plan This note was constructed using voice recognition software. While every effort has been made to ensure accuracy and creative writing english professor, still areas may have been included sometimes these areas may affect the content or meeting of the given symptoms. Total time spent caring for the patient today was 30 minutes. This includes time spent before the visit reviewing the chart, time spent during the visit, and time spent after the visit and documentation. Coding Level of Care Code Est Pt Level 3 (21393) Diagnoses Benign paroxysmal positional vertigo H81.10 Mass of face R22.0
[2023-12-21 09:00] VITALS: BP 132/84; PULSE 66; O2SAT 96; BMI 24.0
== END 2023-12-21 10:26 | disposition home or self-care (01) ==
PROVIDERS: PCP Internal Medicine
DX: H81.11 Benign paroxysmal vertigo, right ear (principal); R22.0 Localized swelling, mass and lump, head
CPT/HCPCS: 99213

== ENCOUNTER 2024-01-11 11:00 | Outpatient (RCR) | payer MEDICARE, SELFPAY ==
[2023-12-22 13:03] VITALS: BP 176/74; PULSE 59
--- NOTE | 2023-12-22 14:22 | MHC.PT.EP ---
[facility] [place] Office [place] [facility] [place] Office [address] Nate Smith [address] [phone] F: [phone] F: [phone] F: [phone] F: [phone] Physical Therapy Plan of Care Date of Evaluation: 12/22/23 Date of Surgery: NA Diagnosis: Benign paroxysmal vertigo Assessment: Mckenna is a 68 year old female who is referred to PT for Benign paraoxysmal vertigo . She reports of having symptoms of vertigo for last 3 weeks. Her symptoms got worse about 1 week back and she needed to go to the ED for the same. She has been feeling better for the last 2-3 days. On PT examination she reported of having room spinning dizziness with looking up, down, and quick head turns. Her symptoms last for a few seconds to few minutes. She was negative for BBPV in B [place] and B roll test, presented with intact saccades, smooth pursuit, negative DVA, negative head thrust and negative for VBI. She demonstrated good static and dynamic balance. She lives with her and is independent with all ADLS but does them slowly due to dizziness. She is retired. She did not present with any symptoms suggestive for vestibular dysfunction today. No PT indicated at this time. She was advised to return to PT in case of return of symptoms. 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 Manual therapy to restore motion and function. Therapeutic exercise to improve strength and flexibility. Neuromuscular re-education for posture and balance. Therapeutic activities to return to functional activities of daily living. Electronically signed by: Radha Wright PT DPT Please sign and return to therapist. Thank you for your referral.
--- NOTE | 2024-02-12 14:44 | MHC.PT.DC ---
[facility] [place] [facility] [place] [facility] [place] Office [address] 140 [facility] [phone] F: [phone] F: [phone] F: [phone] F: [phone] Physical Therapy Discharge Report Diagnosis: Benign paroxysmal vertigo Date of Surgery: NA Date of Evaluation: 12/22/23 Date of Discharge: 02/12/24 Treatments to Date: 3 Cancellations to Date: 0 No Shows to Date: 0 Discharge Status: Achieved Goals Improved Function Discharge Summary: Mckenna has had no symptoms of vestibular dysfunction in over a month. She is therefore being d/c from PT. Electronically signed by: Radha Wright PT DPT Please sign and return to therapist. Thank you for your referral.
== END 2024-02-12 14:44 | disposition home or self-care (01) ==
LOC: HO.PT 11:00
PROVIDERS: PCP Internal Medicine; Visit Provider Internal Medicine
DX: H81.10 Benign paroxysmal vertigo, unspecified ear (principal)
CPT/HCPCS: 95992; 97112; 97161

== ENCOUNTER 2024-01-24 10:19 | Outpatient (REF) | payer MEDICARE, SELFPAY ==
--- NOTE | ~2024-01-24 | MR_ITS ---
EXAMINATION: MRI NECK WITHOUT AND WITH CONTRAST CLINICAL INFORMATION: Swelling. Lesion of the right jaw from CT COMPARISON: CT angiogram of the head and neck 12/16/2023. TECHNIQUE: Multiplanar MR imaging of the neck was performed without and with contrast. FINDINGS: Again there is a smooth well-corticated erosive changes of the right mandibular condyle and there is erosion and subchondral edema within the right temporal bone along the articular fossa of the right mandible. Postcontrast images demonstrate heterogeneous enhancement characteristics within the synovial joint space best visualized on coronal image 13 of 24 series 11. The left temporal mandible joint is unremarkable. Pharyngeal mucosal spaces are symmetric. Parapharyngeal and retromaxillary fat is preserved. Outbound Sales Consultant spaces are unremarkable. The parotid and submandibular glands are normal. The tongue base and epiglottis are normal. Visualized portions of the upper cervical spinal canal are unremarkable. Posterior fossa structures are normal. Vascular flow voids within the neck are maintained. MR/MR orbits face neck wo/w con IMPRESSION: There is heterogeneous enhancement within the right temporomandibular joint space causing smooth well corticated erosive changes of the mandibular condyle and the mandibular fossa. Again these findings are nonspecific and indicate the likelihood of an underlying hyperplastic synovial arthropathy such as synovial osteochondromatosis or pigmented villonodular synovitis. Otherwise unremarkable examination. Electronically signed by: Tay Viramontes MD 02/04/2024 05:01 PM EDT
[2024-01-24] MEDS: gadobutroL 7.5 ML VIAL IVPUSH (11:45)
== END 2024-01-24 10:20 | disposition home or self-care (01) ==
LOC: HO.MRI 10:19
PROVIDERS: PCP Internal Medicine; Visit Provider Internal Medicine
DX: R22.0 Localized swelling, mass and lump, head (principal)
CPT/HCPCS: 70543; A9585

== ENCOUNTER 2024-02-05 11:20 | Outpatient (AMB) | payer MEDICARE, SELFPAY ==
--- NOTE | 2024-02-05 11:43 | AM.OFFVISMDC ---
Intake Vital Signs 02/05/24 11:44 Height 5 ft 5 in Weight 141 lb 4 oz BMI 23.5 BP 112/78 Blood Pressure Location Lt brachial Position Sitting Pulse 67 Pulse Source Pulse Oximeter Pulse Oximetry (%) 96 Oxygen Delivery Method Room Air Intake Visit Reasons: swv Intake Note: Patient is here for an Annual Wellness Visit. Airport Baggage Screener Required: No Metal Roofing Mechanic: Metal Roofing Mechanic offered & declined Accompanied by: Self / Same As Patient Allergies penicillin V Allergy (Unknown, Verified 02/05/24 11:44) hives HPI swv HPI Details 69-year-old female with a history of BPPV coming in for annual well visit last seen in 12/21/2023. Cologuard is negative in 02/10/2021 bone density last done in 04/12/2023 mammogram is up-to-date 02/10/2023. Patient had a recent MRI of the jaw due to a lesion that was seen on the CT. February 04 2024There is heterogeneous enhancement within the right temporomandibular joint space causing smooth well corticated erosive changes of the mandibular condyle and the mandibular fossa. Again these findings are nonspecific and indicate the likelihood of an underlying hyperplastic synovial arthropathy such as synovial osteochondromatosis or pigmented villonodular synovitis. Otherwise unremarkable examination. Patient was seen in the ER also recently for dizziness incidental finding of an expansile lesion surrounding the right mandibular joint. PAtient continues to have the dizziness. 2 weeks of not having severe episodes PFSH Medical History (Updated 02/05/24 @ 19:00 by Miranda Casillas MD) Colon cancer screening Medicare annual wellness visit, subsequent Hypercalcemia Annual physical exam Abnormal Pap smear of cervix Surgical History History of cataract surgery Strabismus Family History Brother Polycythemia vera Father FH: prostate cancer Social History Housing: House Alcohol intake: never Patient Tobacco Use Status: Never used Tobacco e-Cigarette/Vaping Use: Never Used Second Hand Smoke Exposure: No Advance Directives Date on File: 12/01/22 service: No Current occupational status: retired Cognitive needs: No Hearing needs: No Vision needs: Yes (glasses) Questionnaire Medicare Wellness Checkup [age] 65-70 What gender do you identify with?: female During the past 4 weeks, how much have you been bothered by emotional problems such as feeling anxious, depressed, irritable, sad or downhearted, and blue?: not at all During the past 4 weeks, has your physical & emotional health limited your social activities with family, friends, neighbors, or groups?: not at all During the past 4 weeks, how much bodily pain have you generally had?: mild pain During the past 4 weeks, was someone available to help you if you needed & wanted help?: yes, as much as I wanted During the past 4 weeks, what was the hardest physical activity you could do for at least 2 minutes?: heavy Can you get to places out of walking distance without help? (For eg., can you travel alone on buses, taxis or drive your car?): Yes Can you go shopping for groceries or clothes without someone's help?: Yes Can you prepare your own meals?: Yes Can you do your housework without help?: Yes Because of any health problems, do you need the help of another person with your personal care needs such as eating, bathing, dressing or getting around the house?: No Can you handle your own money without help?: Yes During the past 4 weeks, how would you rate your health in general?: good During the past 4 weeks how have things been going for you?: good & bad parts about equal Are you having difficulties driving your car?: no Do you always fasten your seat belt when you are in a car?: yes, usually During past 4 weeks, have you been bothered by the following: never: Sexual problems?, Trouble eating well?, Teeth or denture problems? and Problems using the telephone?, sometimes: Tiredness or fatigue? and often: Falling or dizzy when standing up Have you fallen 2 or more times in the past year?: No Are you afraid of falling?: No Are you a smoker?: no During the past 4 weeks, how many drinks of wine, beer, or other alcoholic beverages did you have?: no alcohol at all Do you exercise for about 20 minutes 3 or more times a week?: yes, all the time Have you been given information to help with the following?: no: Hazards in your house that might hurt you? and no: Keeping track of your medications? How often do you have trouble taking medicines the way you have been told to take them?: I do not have to take medicine How confident are you that you can control & manage most of your health problems?: very confident What is your race?: White PHQ-9 Over the last 2 weeks, how often have you been bothered by any of the following problems? 1. Little interest or pleasure in doing things: not at all 2. Feeling down, depressed, or hopeless: not at all 3. Trouble falling or staying asleep, or sleeping too much: not at all 4. Feeling tired or having little energy: several days 5. Poor appetite or overeating: not at all 6. Feeling bad about yourself - or that you are a failure or have let yourself or your family down: not at all 7. Trouble concentrating on things, such as reading the newspaper or watching television: several days 8. Moving or speaking so slowly that other people could have noticed. Or the opposite - being so fidgety or restless that you have been moving around a lot more than usual: not at all 9. Thoughts that you would be better off or of hurting yourself in some way: not at all Total score: 2 Depression Screening Interpretation: Positive Depression Screening Done: Yes Source: Developed by Drs. Tay Juares, Ronny Scherer and colleagues, with an educational chaparro from [employer]. Thrive Questionnaire Date Thrive assessed: 12/21/23 Are you currently unemployed and looking for a job?: No JOSE-7 AMB Questionnaire JOSE-7 Date JOSE - 7 assessed: 12/21/23 Source: Developed by Jeanine Garcia Kurt Kroenke and colleagues, with an educational chaparro from [employer]. Review of Systems Const Denies poor appetite and Denies weakness Eyes Denies no additional complaints ENT Reports Normal hearing present, Denies dizziness, Denies nasal congestion, Denies tinnitus and Denies sore throat Card Denies chest pain, Denies syncope, Denies rapid heart rate and Denies dyspnea Resp Denies cough and Denies dyspnea GI Denies change in stool character, Reports constipation, Denies diarrhea, Denies nausea and Denies vomiting Denies urinary frequency, Denies difficulty voiding and Denies dysuria Neuro Reports Normal hearing present, Denies confusion, Denies dizziness, Denies syncope and Denies weakness Psych Denies confusion Physical Exam Vital Signs: Last Vital Signs Pulse 67 02/05/24 11:44 BP 112/78 02/05/24 11:44 Pulse Ox 96 02/05/24 11:44 Oxygen Delivery Method Room Air 02/05/24 11:44 BMI result Body Mass Index 23.5 Const General: No confusion Orientation/consciousness: No confusion HEENT Head: Yes normocephalic Ears: external ears normal and TM's normal bilaterally Face and sinus: Yes normal facial exam Mouth: moist mucous membranes Throat: Yes tonsils normal Eyes Conjunctivae: conjunctivae normal Pupils: Equal, round and reactive pupils present and Pupil accommodation reflex normal Direct Ophthalmoscopy: normal light reflex Neck Neck: No lymphadenopathy Thyroid: Thyroid normal Chest Chest palpation & inspection: normal inspection of the chest Resp Effort & Inspection: normal respiratory effort and no audible wheezes Auscultation: clear to auscultation bilaterally, no crackles, no wheezes and lung sounds not diminished Cardio Rate: regular rate Rhythm: regular rhythm Peripheral pulses: radial pulses present and dorsalis pedis present GI Palpation (GI): no masses Auscultation: normal bowel sounds and normoactive bowel sounds Rectal Exam - Female: deferred Skin General skin exam: no rashes or lesions noted Rashes: no rashes Neuro General: No confusion Cranial nerves: Yes Equal, round and reactive pupils present and Yes Normal hearing present Cognition (Neuro): normal cognition Gait exam (Neuro): Normal gait present Motor exam (neuro): 5/5 motor strength present throughout Deep tendon reflexes (DTR's): Right brachioradialis reflex intensity grade: 2+, Left brachioradialis reflex intensity grade: 2+, Right patellar reflex intensity grade: 2+ and Left patellar reflex intensity grade: 2+ Extrem General: No edema Assessment & Plan Assessment & Plan (1) Medicare annual wellness visit, subsequent: Code(s): Z00.00 - Encounter for general adult medical examination without abnormal findings Plan: Patient is advised to eat healthy, keep well hydrated, keep active and have adequate sleep. (2) Hypercholesterolemia: Code(s): E78.00 - Pure hypercholesterolemia, unspecified Plan: Avoid fried foods, chicken skin, eggs, butter margarine, pastries and meat. Be it pork or beef they have a lot of cholesterol LDL goal of less than 130 and triglyceride of less than 150 (3) Migraine: Code(s): G43.909 - Migraine, unspecified, not intractable, without status migrainosus Qualifiers: Intractability: not intractable Migraine type: migraine (< 15 days per month) without aura Status migrainosus presence: without status migrainosus Qualified Code(s): G43.009 - Migraine without aura, not intractable, without status migrainosus Plan: Patient is advised to eat healthy, keep well hydrated, keep active and have adequate sleep. (4) Mass of face: Comment: Right JAW mass Code(s): R22.0 - Localized swelling, mass and lump, head Plan: Concern that MRI showing mass. R jaw decline work up for now (5) Hyperparathyroidism: Code(s): E21.3 - Hyperparathyroidism, unspecified Plan: Continue to follow-up with bone density (6) Colon cancer screening: Code(s): Z12.11 - Encounter for screening for malignant neoplasm of colon Plan: cologuard test to sent Orders: Referrals Cologuard Test Z12.11 - Encounter for screening for malignant neoplasm of colon Medications: Refilled sumatriptan succinate do not exceed 8 doses per 24 hrs 25 mg PO Q2-4H PRN 10 tabs 2RF migraine headache E78.00 - Pure hypercholesterolemia, unspecified Quality Reporting (2019) Depression/Bipolar (159/160/161/177) PHQ-9: Total score: 2 Coding Level of Care Code Medicare Subsequent (G0439) Diagnoses Medicare annual wellness visit, subsequent Z00.00 Hypercholesterolemia E78.00 Migraine without aura and without status migrainosus, not intractable G43.009 Intractability: not intractable Migraine type: migraine (< 15 days per month) without aura Status migrainosus presence: without status migrainosus Mass of face R22.0 Hyperparathyroidism E21.3 Colon cancer screening Z12.11
[2024-02-05 11:44] VITALS: BP 112/78; PULSE 67; O2SAT 96; BMI 23.5
== END 2024-02-05 12:56 | disposition home or self-care (01) ==
PROVIDERS: PCP Internal Medicine; Visit Provider Internal Medicine
DX: Z00.00 Encounter for general adult medical examination without abnormal findings (principal); E78.00 Pure hypercholesterolemia, unspecified; E21.3 Hyperparathyroidism, unspecified; G43.009 Migraine without aura, not intractable, without status migrainosus; R22.0 Localized swelling, mass and lump, head; Z12.11 Encounter for screening for malignant neoplasm of colon

== ENCOUNTER → 2024-02-05 11:20 | Outpatient (BNVA) | payer MEDICARE, SELFPAY | PROVIDERS: PCP Internal Medicine; Visit Provider Internal Medicine ==

== ENCOUNTER 2024-02-07 07:18 | Outpatient (REF) | payer MEDICARE, SELFPAY ==
--- NOTE | ~2024-02-07 | MM_ITS ---
EXAMINATION: MM SCREENING DIGITAL BREAST TOMOSYNTHESIS, BILATERAL CLINICAL INFORMATION: Screening. Asymptomatic. COMPARISON: Mammography: Comparison is made with available priors TECHNIQUE: Digital breast mammography with tomosynthesis is performed in both the craniocaudal and mediolateral oblique views along with computer-aided detection (CAD). FINDINGS: The breasts are heterogeneously dense, which may obscure small masses (ACR BI-RADS breast composition Category c). There are no significant masses, abnormal calcifications, or other abnormalities. MM/MM tomosynthesis screening BI IMPRESSION: No mammographic evidence of malignancy. ASSESSMENT: BI-RADS BI-RADS 1 - Negative RECOMMENDATION: Routine annual mammography screening. 1 year F/U This examination should not preclude the clinical evaluation of a suspicious palpable abnormality. This patient's information was entered into a reminder system with a target due date for their next mammogram. Electronically signed by: Dorothea Ferguson DO 02/19/2024 05:22 PM EDT
== END 2024-02-07 07:19 | disposition home or self-care (01) ==
LOC: HO.MAMMO 07:18
PROVIDERS: PCP Internal Medicine; Visit Provider Internal Medicine
DX: Z12.31 Encounter for screening mammogram for malignant neoplasm of breast (principal)
CPT/HCPCS: 77063; 77067

== ENCOUNTER → 2024-02-07 07:30 | Outpatient (BNV) | payer MEDICARE, SELFPAY | PROVIDERS: PCP Internal Medicine; Visit Provider Internal Medicine | DX: Z12.31 Encounter for screening mammogram for malignant neoplasm of breast (principal) | CPT/HCPCS: 77063; 77067 ==

== ENCOUNTER 2024-06-25 08:51 | Outpatient (AMB) | payer MEDICARE, SELFPAY ==
--- NOTE | 2024-06-25 09:20 | A.OFFPC_ITS ---
Vital Signs 06/25/24 09:21 Height 5 ft 5 in Weight 142 lb 4 oz BMI 23.7 BP 132/68 Blood Pressure Location Lt brachial Position Sitting Pulse 62 Pulse Source Pulse Oximeter Temp 97.7 F Temp Source Temporal Artery Scan Pulse Oximetry (%) 97 Oxygen Delivery Method Room Air Intake Visit Reasons: right ear that goes down to her neck Intake Note: Patient is here to follow up on right ear pain radiates down to neck. 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 per policy Accompanied by: Self / Same As Patient Allergies penicillin V Allergy (Unknown, Verified 06/25/24 09:27) hives Medication List - Last Reconciled 06/25/24 by JAYA Holt cholecalciferol (vitamin D3) 50 mcg PO DAILY 90 days meclizine 25 mg PO DAILY PRN omega 0-dbu-pho-fish oil 300-1,000 mg (Fish Oil) 1 cap PO DAILY sumatriptan succinate 25 mg PO Q2-4H PRN Tobacco use date assessed: 06/25/24 Fall risk assessment: No Falls in past year Last assessed Fall Risk: 06/25/24 Dental Screening Dental Screen Date: 06/25/24 Did you have a dental visit in the last 12 months?: Yes Did you have a dental problem in the last 6 months where you did not have access to dental care?: No Was dental information given to patient?: Patient has dentist HPI right ear that goes down to her neck HPI Details The patient is a 69-year-old female presenting with right ear pain Reports right ear itches, has sharp brief pain intermittently, which started couple weeks ago, the pain started and went away and restarted on Monday night reports that there was an incidental lesion noted in her right jaw on MRI, in the end of November-when she was being worked up for dizziness. Reports that she has to keep swallowing to let the pressure out of her ear, it feels like her ear is full She denies ringing in the ears, nasal congestion or flu like symptoms On exam: right ear opaque noted, consistent with otitis media-The patient is allergic to penicillin. She was placed and Bactrim DS bid x10 days PFSH Medical History (Updated 06/28/24 @ 22:40 by JAYA Holt) Colon cancer screening Medicare annual wellness visit, subsequent Hypercalcemia Annual physical exam Abnormal Pap smear of cervix Surgical History History of cataract surgery Strabismus Family History Brother Polycythemia vera Father FH: prostate cancer Social History Housing: House Alcohol intake: never Patient Tobacco Use Status: Never used Tobacco e-Cigarette/Vaping Use: Never Used Second Hand Smoke Exposure: No Advance Directives Date on File: 12/01/22 service: No Current occupational status: retired Cognitive needs: No Hearing needs: No Vision needs: Yes (glasses) Questionnaire PHQ-9 Over the last 2 weeks, how often have you been bothered by any of the following problems? 1. Little interest or pleasure in doing things: not at all 2. Feeling down, depressed, or hopeless: not at all 3. Trouble falling or staying asleep, or sleeping too much: not at all 4. Feeling tired or having little energy: not at all 5. Poor appetite or overeating: not at all 6. Feeling bad about yourself - or that you are a failure or have let yourself or your family down: not at all 7. Trouble concentrating on things, such as reading the newspaper or watching television: not at all 8. Moving or speaking so slowly that other people could have noticed. Or the opposite - being so fidgety or restless that you have been moving around a lot more than usual: not at all 9. Thoughts that you would be better off or of hurting yourself in some way: not at all Total score: 0 Depression Screening Interpretation: Negative Depression Screening Done: Yes 75704 - PHQ-9 Billing: Yes Source: Developed by Drs. Tay Juares, Jeanine Jimenes, Ronny Paige and colleagues, with an educational chaparro from [employer]. Thrive Questionnaire Date Thrive assessed: 06/25/24 I am a: Patient What is your living situation today?: I have a steady place to live Within the past 12 months, did the food you bought not last and you didn't have the money to get more?: Never true Within the past 12 months, did you worry whether your food would run out before you got money to buy more?: Never true Do you have trouble paying for medicines?: No Do you have trouble getting transportation to medical appointments?: No Do you have trouble paying your heating and electricity bill?: No Do you have trouble taking care of your child, family member or friend?: No Do you have trouble with day-to-day activities such as bathing, preparing meals, shopping, managing finances, etc.?: No Are you currently unemployed and looking for a job?: No Are you interested in more education?: No Please select the resources that you would like help with: None Currently or been in a relationship where the following occur: No concerns reported THRIVE Score: 0 AUDIT C Alcohol Use Questionnaire (AUDIT-C) 1. How often do you have a drink containing alcohol?: Never 3. How often do you have six or more drinks on one occasion?: Never Total Score: 0 JOSE-7 AMB Questionnaire JOSE-7 Date JOSE - 7 assessed: 06/25/24 Feeling nervous, anxious, or on edge: 0 = Not at all Not being able to stop or control worryin = Not at all Worrying too much about different things: 0 = Not at all Trouble relaxin = Not at all Being so restless that it is hard to sit still: 0 = Not at all Becoming easily annoyed or irritable: 0 = Not at all Feeling afraid as if something awful might happen: 0 = Not at all Total JOSE-7 score (0-4 normal; 5-9 mild; 10-14 moderate; 15-21 severe): 0 Source: Developed by Drs. Tay Juares, Jeanine Jimenes, Ronny Paige and colleagues, with an educational chaparro from [employer]. JOSE-7 Assessment Billing JOSE-7 Assessment Tool: JOSE-7 Assessment 34240 Review of Systems Const Details: Denies chills, Denies fatigue, Denies fever(s), Denies headache(s) and Denies weakness HEENT Denies change in vision, Denies dizziness, Denies headache(s), Denies hearing loss, Denies nasal congestion, Denies sinus pain, Denies sinus pressure and Denies sore throat Other: right ear pressure/pain, fullness and itchiness present Card Denies chest pain, Denies lightheadedness, Denies dyspnea and Denies other (palpitations) Resp Denies cough, Denies dyspnea and Denies wheezing GI Denies abdominal pain, Denies melena, Denies hematochezia, Denies change in bowel habits, Denies dyspepsia and Denies nausea Denies hematuria and Denies dysuria Physical exam (Primary Care) Vital Signs: Last Vital Signs Temp 97.7 F 06/25/24 09:21 Pulse 62 06/25/24 09:21 BP 132/68 06/25/24 09:21 Pulse Ox 97 06/25/24 09:21 Oxygen Delivery Method Room Air 06/25/24 09:21 BMI result Body Mass Index 23.7 Tobacco/Smoking Status: Tobacco use Status Tobacco use date assessed 06/25/24 06/25/24 09:24 Patient Tobacco Use Status Never used Tobacco 06/25/24 09:24 e-Cigarette/Vaping Use Never Used 06/25/24 09:24 PHQ-9: PHQ-9 Score PHQ-9: Total score 0 06/25/24 15:29 Depression Screening Interpretation: Negative Thrive Assessment: Date of Thrive Assessment Date Thrive assessed 06/25/24 06/25/24 09:24 Currently or been in a relationship where the following occur: No concerns reported Const Other: General: no acute distress, well developed, alert and awake Nutritional Appearance: well nourished Orientation/consciousness: patient oriented x3 HENMT Head: Yes normocephalic and Yes atraumatic Ears: hearing grossly normal bilaterally and right TM opaque present, no cone of light noted General nose exam: Normal external nose present and Normal nares present Mouth: Normal oral and palatal mucosa present and moist mucous membranes Teeth and gingiva: dentition normal Throat: Yes oropharynx normal Eyes Pupils: Equal, round and reactive pupils present and Pupil accommodation reflex normal EOM: EOMs intact bilaterally Neck Neck: Yes normal visual inspection, Yes no lymphadenopathy Lymphatic: no lymphadenopathy noted Resp Effort & Inspection: normal respiratory effort Auscultation: clear to auscultation bilaterally Cardio Rate: regular rate Rhythm: regular rhythm Heart sounds: S1 normal heart sound present, S2 normal heart sound present, no gallops, no murmurs and no rubs GI Palpation (GI): Abdomen is soft and nontender Auscultation: normal bowel sounds General: Yes no CVA tenderness Coding Level of Care Code Est Pt Level 3 (95405) Diagnoses Acute otitis media, unspecified otitis media type H66.90 Otitis media type: unspecified Chronicity: acute Additional Codes JOSE-7 Assessment Billing - JOSE-7 Assessment Tool: JOSE-7 Assessment 61215 ([id number]) PHQ-9 - 64347 - PHQ-9 Billing: Yes ([id number]) Time Spent (min) 28 Assessment & Plan Assessment & Plan (1) Otitis media: Code(s): H66.90 - Otitis media, unspecified, unspecified ear Category: Medical Qualifiers: Otitis media type: unspecified Chronicity: acute Qualified Code(s): H66.90 - Otitis media, unspecified, unspecified ear Plan: right ear opaque noted, consistent with otitis media-The patient is allergic to penicillin. She was placed and Bactrim DS bid x10 days Medications: New sulfamethoxazole-trimethoprim 800-160 mg (Bactrim DS) 1 tab PO BID 10 days 20 tabs 0RF H66.90 - Otitis media, unspecified, unspecified ear
[2024-06-25 09:21] VITALS: BP 132/68; PULSE 62; TEMP 36.5; O2SAT 97; BMI 23.7
--- OUTSIDE RECORDS SUMMARY | 2024-06-25 09:33 | XMS_ITS | Patient Health Record ---
Author Organization [facility] [place] Address [address] [place] [address] Care Team Providers Care Spice Grinder Name Role Phone Miranda Casillas Primary Care Provider Priyanka Sheldon Unavailable [phone] Allergies Allergen (clinical drug ingredient) Drug/Non Drug Allergy documented on EMR Reaction Allergy Type Onset Date Status Penicillin hives Drug Allergy Active Reason For Referral No Information Medications Medication SIG (Take, Route, Fr equency, Duration) Notes Start Date End Date Status Fish Oil 2400 mg qd Active Immunizations Vaccine Route Administration Date Status Comme nts COVID-19 Pfizer BioNTech Vaccine Unknown 08/08/2020 Administered 07/18/2020 Social History Tobacco Use: Social History Observation Description Date Details (start date - stop date) Never Smoker NA - NA Tobacco Use/Smoking Question Answer Notes Are you a: nonsmoker Additional Findings: Tobacco Non-User Current no n-smoker Alcohol Screen Question Answer Notes Did you have a drink containing alcohol in the p ast year? No Points 0 Interpretation Negative Tobacco use other than smoking: Question Answer Notes Are you an other tobacco user? 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 Plan Of Treatment Pending Test Test Name Order Date X ray : Foot, left 3V 02/05/2021 X ray : Foot, right 3V 02/05/2021 Insurance Providers Payer Name Payer Address Payer Phone Subscriber Number Group Number Insured Name Patient Relationship to Insured Coverage Start Date Coverage End Date Medicare [employer] [address] [place] [address] [id number] Mckenna Méndez Self - patient is the insured [employer] [address] [place] [address] [phone] [id number] Mckenna Méndez Self - patient is the insured Medical (General) History Medical History History ICD Code Measles Mumps Chicken pox Surgical History Surgery Date(Month/Year) strabismus repair 1960
== END 2024-06-25 09:54 | disposition home or self-care (01) ==
PROVIDERS: PCP Internal Medicine
DX: H66.90 Otitis media, unspecified, unspecified ear (principal)

== ENCOUNTER → 2024-06-25 08:51 | Outpatient (BNVA) | payer MEDICARE, SELFPAY | PROVIDERS: PCP Internal Medicine | DX: H66.91 Otitis media, unspecified, right ear (principal) | CPT/HCPCS: 96127; 99212 ==

== ENCOUNTER 2025-02-12 07:30 | Outpatient (REF) | payer MEDICARE, SELFPAY | END 2025-02-12 07:31 | disposition home or self-care (01) | LOC: HO.MAMMO 07:30 | PROVIDERS: PCP Internal Medicine; Visit Provider Internal Medicine | DX: Z12.31 Encounter for screening mammogram for malignant neoplasm of breast (principal) | CPT/HCPCS: 77063; 77067 ==

== ENCOUNTER → 2025-02-12 07:45 | Outpatient (BNV) | payer MEDICARE, SELFPAY | PROVIDERS: PCP Internal Medicine; Visit Provider Internal Medicine | DX: Z12.31 Encounter for screening mammogram for malignant neoplasm of breast (principal) | CPT/HCPCS: 77063; 77067 ==

== ENCOUNTER 2025-02-12 10:27 | Outpatient (AMB) | payer MEDICARE, SELFPAY ==
[2025-02-12 10:39] VITALS: BP 122/68; PULSE 62; O2SAT 98; BMI 23.8
--- NOTE | 2025-02-12 10:39 | AM.OFFVISMDC ---
Intake Vital Signs 02/12/25 10:39 Height 5 ft 5 in Weight 143 lb BMI 23.8 BP 122/68 Blood Pressure Location Lt brachial Position Sitting Pulse 62 Pulse Source Pulse Oximeter Pulse Oximetry (%) 98 Oxygen Delivery Method Room Air Intake Visit Reasons: SWV G0439 Allergies penicillin V Allergy (Unknown, Verified 02/12/25 10:40) hives Medication List - Last Reconciled 02/12/25 by Miranda Casillas MD acetaminophen (Tylenol) 325 mg PO QID PRN cholecalciferol (vitamin D3) 50 mcg PO DAILY 90 days ibuprofen 400 mg PO Q8H meclizine 25 mg PO DAILY PRN omega [id number]-vvr-fish oil 300-1,000 mg (Fish Oil) 1 cap PO DAILY sumatriptan succinate 25 mg PO Q2-4H PRN HPI SWV G0439 HPI Details occ dizzy still PFSH Medical History (Updated 02/12/25 @ 10:56 by Miranda Casillas MD) Colon cancer screening Medicare annual wellness visit, subsequent Hypercalcemia Annual physical exam Abnormal Pap smear of cervix Surgical History History of cataract surgery Strabismus Family History Brother Polycythemia vera Father FH: prostate cancer Social History Housing: House Alcohol intake: never Patient Tobacco Use Status: Never used Tobacco e-Cigarette/Vaping Use: Never Used Second Hand Smoke Exposure: No Advance Directives Date on File: 12/01/22 service: No Current occupational status: retired Cognitive needs: No Hearing needs: No Vision needs: Yes (glasses) Questionnaire Medicare Wellness Checkup [age] What gender do you identify with?: female During the past 4 weeks, how much have you been bothered by emotional problems such as feeling anxious, depressed, irritable, sad or downhearted, and blue?: not at all During the past 4 weeks, has your physical & emotional health limited your social activities with family, friends, neighbors, or groups?: not at all During the past 4 weeks, how much bodily pain have you generally had?: mild pain During the past 4 weeks, was someone available to help you if you needed & wanted help?: yes, as much as I wanted During the past 4 weeks, what was the hardest physical activity you could do for at least 2 minutes?: heavy Can you get to places out of walking distance without help? (For eg., can you travel alone on buses, taxis or drive your car?): Yes Can you do your housework without help?: Yes Because of any health problems, do you need the help of another person with your personal care needs such as eating, bathing, dressing or getting around the house?: No Can you handle your own money without help?: Yes During the past 4 weeks, how would you rate your health in general?: very good During the past 4 weeks how have things been going for you?: very well; could hardly better Are you having difficulties driving your car?: no Do you always fasten your seat belt when you are in a car?: yes, usually During past 4 weeks, have you been bothered by the following: never: Sexual problems?, Trouble eating well?, Teeth or denture problems?, Problems using the telephone? and Tiredness or fatigue? and sometimes: Falling or dizzy when standing up Have you fallen 2 or more times in the past year?: No Are you afraid of falling?: No Are you a smoker?: no During the past 4 weeks, how many drinks of wine, beer, or other alcoholic beverages did you have?: no alcohol at all Do you exercise for about 20 minutes 3 or more times a week?: yes, most of the time Have you been given information to help with the following?: no: Hazards in your house that might hurt you? and no: Keeping track of your medications? How often do you have trouble taking medicines the way you have been told to take them?: I do not have to take medicine How confident are you that you can control & manage most of your health problems?: very confident What is your race?: White PHQ-9 Over the last 2 weeks, how often have you been bothered by any of the following problems? 1. Little interest or pleasure in doing things: not at all 2. Feeling down, depressed, or hopeless: not at all 3. Trouble falling or staying asleep, or sleeping too much: not at all 4. Feeling tired or having little energy: not at all 5. Poor appetite or overeating: not at all 6. Feeling bad about yourself - or that you are a failure or have let yourself or your family down: not at all 7. Trouble concentrating on things, such as reading the newspaper or watching television: not at all 8. Moving or speaking so slowly that other people could have noticed. Or the opposite - being so fidgety or restless that you have been moving around a lot more than usual: not at all 9. Thoughts that you would be better off or of hurting yourself in some way: not at all Total score: 0 Depression Screening Interpretation: Negative Depression Screening Done: Yes 98101 - PHQ-9 Billing: Yes Source: Developed by Drs. Tay Juares, Jeanine Jimenes, Ronny Paige and colleagues, with an educational chaparro from [employer]. Review of Systems Const Denies poor appetite and Denies weakness Eyes Denies no additional complaints ENT Reports Normal hearing present, Denies dizziness, Denies nasal congestion, Denies tinnitus and Denies sore throat Card Denies chest pain, Denies syncope, Denies rapid heart rate and Denies dyspnea Resp Denies cough and Denies dyspnea GI Denies change in stool character, Reports constipation, Denies diarrhea, Denies nausea and Denies vomiting Denies urinary frequency, Denies difficulty voiding and Denies dysuria Neuro Reports Normal hearing present, Denies confusion, Denies dizziness, Denies syncope and Denies weakness Psych Denies confusion Physical Exam Vital Signs: Last Vital Signs Pulse 62 02/12/25 10:39 BP 122/68 02/12/25 10:39 Pulse Ox 98 02/12/25 10:39 Oxygen Delivery Method Room Air 02/12/25 10:39 BMI result Body Mass Index 23.8 Const General: No confusion Orientation/consciousness: No confusion HEENT Head: Yes normocephalic Ears: external ears normal and TM's normal bilaterally Face and sinus: Yes normal facial exam Mouth: moist mucous membranes Throat: Yes tonsils normal Eyes Conjunctivae: conjunctivae normal Pupils: Equal, round and reactive pupils present and Pupil accommodation reflex normal Direct Ophthalmoscopy: normal light reflex Neck Neck: No lymphadenopathy Thyroid: Thyroid normal Chest Chest palpation & inspection: normal inspection of the chest Resp Effort & Inspection: normal respiratory effort and no audible wheezes Auscultation: clear to auscultation bilaterally, no crackles, no wheezes and lung sounds not diminished Cardio Rate: regular rate Rhythm: regular rhythm Peripheral pulses: radial pulses present and dorsalis pedis present GI Palpation (GI): no masses Auscultation: normal bowel sounds and normoactive bowel sounds Rectal Exam - Female: deferred Skin General skin exam: no rashes or lesions noted Rashes: no rashes Neuro General: No confusion Cranial nerves: Yes Equal, round and reactive pupils present and Yes Normal hearing present Cognition (Neuro): normal cognition Gait exam (Neuro): Normal gait present Motor exam (neuro): 5/5 motor strength present throughout Deep tendon reflexes (DTR's): Right brachioradialis reflex intensity grade: 2+, Left brachioradialis reflex intensity grade: 2+, Right patellar reflex intensity grade: 2+ and Left patellar reflex intensity grade: 2+ Extrem General: No edema Assessment & Plan Assessment & Plan (1) Medicare annual wellness visit, subsequent: Code(s): Z00.00 - Encounter for general adult medical examination without abnormal findings (2) Hyperparathyroidism: Code(s): E21.3 - Hyperparathyroidism, unspecified (3) Osteopenia: Comment: February 2021 Code(s): M85.80 - Other specified disorders of bone density and structure, unspecified site (4) Hypercholesterolemia: Code(s): E78.00 - Pure hypercholesterolemia, unspecified (5) Knee pain, bilateral: Code(s): M25.561 - Pain in right knee; M25.562 - Pain in left knee Plan History of Present Illness The patient is a 70-year-old female presenting for an annual wellness visit. She has a history of osteopenia, which progressed to osteoporosis as indicated by her last bone density test in March 2023. The patient has been managing hyperparathyroidism, which has not required surgical intervention at this time. Hypercholesterolemia is another condition she is managing, with her last LDL cholesterol level recorded at 167 mg/dL in 2022. The patient was treated for an ear infection in the right ear with Bactrim. Her last blood work in November 2023 showed normal blood count, no anemia, normal electrolytes, good renal function, and a blood sugar level of 109 mg/dL with elevated calcium levels. Health Maintenance - Annual wellness visit conducted - Last [facility] test in January 2024 was negative - Mammogram is due Social History Review of Systems - Ear: Reports right ear infection - Endocrine: Reports hyperparathyroidism - Musculoskeletal: Reports osteoporosis - Cardiovascular: Reports hypercholesterolemia Physical Exam General: Cooperative, healthy appearing, comfortable, no acute distress and well developed Orientation: Patient oriented x3 Limitations: No limitations Head: Normal to inspection Ears: Hearing grossly normal bilaterally, recent right ear infection treated with Bactrim Nose: Normal external nose present Face and sinus: Normal facial exam Eyes: Appearance normal, both eyes and all related structures Neck: Normal visual inspection and Yes full ROM Respiratory: Normal respiratory effort and able to speak in complete sentences. Clear to auscultation bilaterally Cardiovascular: Regular rate and rhythm. Normal S1 and S2 GI: Normal to inspection. Soft to palpation and nontender Skin: No rashes or lesions noted Neuro: Patient oriented x3 Extremities: Normal to inspection Results - Labs: Blood work in November 2023 showed normal blood count, no anemia, normal electrolytes, good renal function, blood sugar 109 mg/dL, elevated calcium - Tests: Last bone density in March 2023 indicated osteoporosis - Tests: LDL cholesterol level was 167 mg/dL in 2022 - Screening: Last Cologuard test in January 2024 was negative Plan Patient was informed and verbally consented to the use of an ambient scribe for clinic note documentation during this visit. 1. Osteoporosis The patient has osteoporosis, confirmed by a bone density test in March 2023. Management includes monitoring bone density and considering treatment options to prevent fractures. 2. Hyperparathyroidism The patient is diagnosed with hyperparathyroidism, which currently does not require surgical intervention. Regular monitoring of calcium levels and parathyroid function is recommended. 3. Hypercholesterolemia The patient has hypercholesterolemia with an LDL level of 167 mg/dL recorded in 2022. Management includes lifestyle modifications and monitoring lipid levels. 4. Acute Otitis Media The patient was treated for an acute otitis media in the right ear with Bactrim. Follow-up is necessary to ensure resolution of the infection. Discussion Notes Patient Instructions Orders: Orders Complete Blood Count Auto Diff Today E21.3 - Hyperparathyroidism, unspecified Lipid Panel Today E21.3 - Hyperparathyroidism, unspecified, E78.00 - Pure hypercholesterolemia, unspecified Vitamin B12 and Folate Today E21.3 - Hyperparathyroidism, unspecified Calcium, Ionized Today E21.3 - Hyperparathyroidism, unspecified UA CC w/rflx Micro + Cult Today E21.3 - Hyperparathyroidism, unspecified, R30.0 - Dysuria XR DEXA axial skeleton Today M81.0 - Age-related osteoporosis without current pathological fracture, M85.80 - Other specified disorders of bone density and structure, unspecified site Comprehensive Met. Panel Today E21.3 - Hyperparathyroidism, unspecified Free T4 (Free Thyroxine) Today E21.3 - Hyperparathyroidism, unspecified Thyroid Stimulating Hormone Today E21.3 - Hyperparathyroidism, unspecified Vitamin D 25-OH Total Today E21.3 - Hyperparathyroidism, unspecified Parathyroid Hormone Intact Today E21.3 - Hyperparathyroidism, unspecified XR Knee Daljit 1or 2V Today M25.561 - Pain in right knee, M25.562 - Pain in left knee Quality Reporting (2019) Depression/Bipolar (159/160/161/177) PHQ-9: Total score: 0 Coding Level of Care Code Medicare Subsequent (G0439) Diagnoses Medicare annual wellness visit, subsequent Z00.00 Hyperparathyroidism E21.3 Osteopenia M85.80 Hypercholesterolemia E78.00 Knee pain, bilateral M25.561; M25.562 Additional Codes PHQ-9 - 04244 - PHQ-9 Billing: Yes ([id number])
== END 2025-02-12 11:10 | disposition home or self-care (01) ==
LOC: HO.HMCH 10:28
PROVIDERS: PCP Internal Medicine; Visit Provider Internal Medicine
DX: Z00.00 Encounter for general adult medical examination without abnormal findings (principal); E21.3 Hyperparathyroidism, unspecified; M85.80 Other specified disorders of bone density and structure, unspecified site; E78.00 Pure hypercholesterolemia, unspecified; M25.561 Pain in right knee; M25.562 Pain in left knee

== ENCOUNTER 2025-02-21 06:27 | Outpatient (REF) | payer MEDICARE, SELFPAY ==
--- NOTE | ~2025-02-21 | XR_ITS ---
EXAMINATION: XR KNEE 1-2 VIEWS BILATERAL HISTORY: M25.561 - Pain in right knee COMPARISON: There are no prior studies available for comparison. FINDINGS: Standing AP views of both knees and additional lateral views of the bilateral knees are submitted. Osseous mineralization is normal. There is no fracture or dislocation. There is slight narrowing of the medial compartments and moderate narrowing of the patellofemoral compartments of both knees. The soft tissues are unremarkable. There is no joint effusion. XR/XR Knee Daljit 1or 2V IMPRESSION: Degenerative changes of the bilateral knees as described. Electronically signed by: Tay Lobo MD 02/21/2025 07:18 AM EDT
[2025-02-21 07:21] LABS: Hematocrit 42.0 % (37.0-47.0); Hemoglobin 13.5 g/dl (12.0-16.0); Imm Gran Abs Auto 0.00 X10*3/uL (0.00-0.03); Imm Gran Pct Auto 0.0 % (0.0-0.4); Lymphocytes Absolute Auto 1.8 X10*3/uL (1.2-4.9); MANUAL DIFF FLAG NO; Mean Corpuscular HGB Conc 32.1 g/dl (31.0-35.0); Mean Corpuscular Hemoglobin 27.8 pg (27.0-33.0); Mean Corpuscular Volume 86.6 fL (80.0-98.0); NRBC Abs Auto 0.000 X10*3/uL (0.0-0.012); NRBC Pct Auto 0.0 /100WBC (0.0-0.2); Platelet Count 199 X10*3/uL (160-400); Red Blood Count 4.85 X10*6/uL (4.20-5.50); White Blood Count 3.8 X10*3/uL (4.8-10.8)
[2025-02-21 07:30] LABS: Appearance Urine Clear; Glucose Urine UA Negative (Negative); PH 5.0 (5.0-9.0); Specific Gravity - Urine 1.020 (1.005-1.025); UMIC TRIGGER UACC YES
[2025-02-21 07:41] LABS: UACC Culture Trigger YES
[2025-02-21 08:00] LABS: Alanine Aminotransferase 32 U/L (0-31); Albumin Level 4.5 g/dL (3.5-5.0); Alkaline Phosphatase 110 U/L (39-117); Anion Gap 10 (12-20); Aspartate Amino Transferase 32 U/L (5-31); Blood Urea Nitrogen 20 mg/dL (9-16); Calcium 10.8 mg/dL (8.4-10.2); Carbon Dioxide 29 mmol/L (22-29); Chloride 107 mmol/L (96-108); Cholesterol 254 mg/dL (<200); Estimated Glomerular Filt Rate > 60; HDL Cholesterol 82 mg/dL (>40); Potassium 4.3 mmol/L (3.3-5.1); Sodium 142 mmol/L (135-145); Total Protein 7.0 g/dL (6.5-8.0); Triglycerides 63 mg/dL (<150)
[2025-02-21 08:05] LABS: Parathyroid Hormone Intact 201.4 pg/mL (8.7-77.1)
[2025-02-21 08:18] LABS: Free T4 (Free Thyroxine) 0.93 ng/dL (0.71-1.85); Thyroid Stimulating Hormone 4.40 uIU/mL (0.32-4.0)
[2025-02-21 08:31] LABS: Folate 7.6 ng/mL (> or = 4.0); Vitamin B12 381 pg/mL (200-900)
[2025-02-24 17:53] LABS: Calcium, Ionized 6.3 mg/dL (4.7-5.5)
== END 2025-02-21 06:28 | disposition home or self-care (01) ==
LOC: HO.XRAY 06:27
PROVIDERS: PCP Internal Medicine; Visit Provider Internal Medicine
DX: M25.561 Pain in right knee (principal); M25.562 Pain in left knee; E21.3 Hyperparathyroidism, unspecified; E78.00 Pure hypercholesterolemia, unspecified; Z13.21 Encounter for screening for nutritional disorder
CPT/HCPCS: 36415; 73560; 80053; 80061; 81001; 82306; 82330; 82607; 82746; 83970; 84439; 84443; 85025; 87086

== ENCOUNTER → 2025-02-21 06:55 | Outpatient (BNV) | payer MEDICARE, SELFPAY | PROVIDERS: PCP Internal Medicine; Visit Provider Radiology Diagnostic Radiology | DX: M25.561 Pain in right knee (principal) | CPT/HCPCS: 73560 ==